=== PATIENT | female | born 1945 | race Caucasian/White ===

== ENCOUNTER → 2016-06-06 | Outpatient (CLI) | payer OTHER, BC ==
[~2016-06-06] MED LIST: ACET650T49 PO; AMLO-110 PO; AMLO-114 PO; AMOX500C3 PO; ASPEC81 PO; CIPR-255 PO; CLB200 PO; CLOB-65 EXT; CLON0.5T3 PO; CLR5 PO; CRAN500C2 PO; GEMF600T PO; IMD/2 PO; LISI40TA PO; LORA-388 PO; MECL1TAB40 PO; METO25TA3 PO; MULTTAB58 PO; PHEN-775 PO; TRAM-10 PO; TRMO2580 TOP; ZNTT/150 PO
[2016-06-06 13:08] LABS: URINE APPEARANCE CLEAR (CLEAR); URINE BILIRUBIN NEG (NEG); URINE COLOR YELLOW; URINE NITRITE NEG (NEG); URINE PH 5.5 (4.5-7.5); URINE SPECIFIC GRAVITY 1.023 (1.000-1.030); UROBILINOGEN NEG (NEG); ZZUR CULT IF INDIC CLEAN CATCH NO
[2016-06-06 13:10] LABS: MANUAL MICROSCOPIC REQUIRED? YES; REVIEW REQ? NO
[2016-06-06 13:34] LABS: ESTIMATED AVERAGE GLUCOSE 131 mg/dl; HA1C FLAG Normal (Normal)
[2016-06-06 13:39] LABS: URINE BACTERIA NEG (NEG); URINE RBC >30 /hpf (0-4)
[2016-06-06 13:42] LABS: ALT/SGPT 30 U/L (12-78); AST/SGOT 18 U/L (15-37); BLOOD UREA NITROGEN 26 mg/dl (7-18); BUN/CREATININE RATIO 32.5 (10-20); CALCIUM 9.5 mg/dl (8.5-10.1); CARBON DIOXIDE 30 mmol/L (21-32); CHLORIDE 106 mmol/L (98-107); CHOLESTEROL 299 mg/dl (0-200); CREATININE 0.79 mg/dl (0.60-1.20); GLUCOSE 111 mg/dl (70-99); POTASSIUM 3.9 mmol/L (3.5-5.1); SODIUM 142 mmol/L (136-145); TRIGLYCERIDES 193 mg/dl (0-150); VERY LOW DENSITY LIPOPROT CALC 39 mg/dl
[2016-06-06 14:00] LABS: ALKALINE PHOSPHATASE 98 U/L (45-117); CHOLESTEROL/HDL RATIO 5.2; HDL CHOLESTEROL 58 mg/dl; LDL CHOLESTEROL CALCULATED 202 mg/dl
--- NOTE | 2016-06-13 13:02 | CODING QUERY MEDICAL NECESSITY ---
SUPPORTING DIAGNOSIS NEEDED Dr. Maldonado, A supporting diagnosis is required for the test/procedure performed on this patient in order for us to be reimbursed by the patient's insurance. Please provide a supporting diagnosis for the following test/procedure listed below next to the test name along with your signature. *If there is no additional diagnosis for this patient that would support the following test/procedure please document that below next to the test/procedure. Test(s)/Procedure(s) that require a supporting diagnosis: * [id number] GLYCATED HEMOGLOBIN DIAGNOSIS: DATE OF SERVICE: 06/06/16 Provider Signature: Date: Thank you Barry Arellano [employer] Once completed, please kindly fax back to [phone] For questions please call [phone]
== END | disposition home or self-care (01) ==
LOC: C.LABBFT 07:57
PROVIDERS: ATTEND Internal Medicine
DX: R73.03 Prediabetes (principal); E78.5 Hyperlipidemia, unspecified; I10 Essential (primary) hypertension

== ENCOUNTER → 2016-07-24 | Outpatient (CLI) | payer OTHER, BC ==
--- NOTE | 2016-07-24 09:43 | DIAGNOSTIC IMAGING REPORT ---
DOPPLER ULTRASOUND OF THE RENAL ARTERIES CLINICAL HISTORY: Hypertension. COMPARISON STUDY: No priors. TECHNIQUE: Doppler sonography of the renal arteries was performed to assess renal artery stenosis. Images are reviewed in the transverse and longitudinal planes. FINDINGS: The kidneys appear normal in size and echotexture. The right kidney measures 9.7 cm in length and the left kidney measures 10.3 cm in length. There is no hydronephrosis. A subcentimeter cyst is noted in the right upper pole. A shadowing calculus is present in the left lower pole. On the right, intrarenal arterial resistive indices range from 0.72 to 0.78. Intrarenal arterial waveforms are normal with brisk upstrokes. The right renal arterial waveform is normal, and velocities within the right renal artery measure up to 121 cm/sec. The right renal vein is patent. On the left, intrarenal arterial resistive indices range from 0.66 to 0.69. Intrarenal arterial waveforms are normal with brisk upstrokes. The left renal arterial waveform is normal. There are mildly elevated velocities within the midportion of the left renal artery which measure up to 220 cm/sec. The left renal vein is patent. The abdominal aorta is patent. Velocities within the abdominal aorta measure up to 115 cm/s. IMPRESSION: 1. There is no sonographic evidence of right renal artery stenosis. 2. There are mildly elevated velocities within the midportion of the left renal artery measuring up to 220 cm/s. This suggests some degree of stenosis. 3. Left renal calculus. Electronically signed by: Ruy Dave M.D. 07/24/2016 9:42 AM Dictated Date/Time: 07/24/2016 9:33 AM
== END | disposition home or self-care (01) ==
LOC: C.ULTR 08:27
PROVIDERS: ATTEND Nurse Practitioner
DX: I10 Essential (primary) hypertension (principal)

== ENCOUNTER → 2016-07-28 | Outpatient (CLI) | payer OTHER, BC ==
[~2016-07-28] MED LIST changes: +OPTIRAY 320 IV PRN
--- NOTE | 2016-07-28 10:00 | DIAGNOSTIC IMAGING REPORT ---
CT ANGIOGRAM OF THE ABDOMEN COMBO CLINICAL HISTORY: Renal artery stenosis. Hypertension. COMPARISON STUDY: Renal artery ultrasound dated 07/24/2016. TECHNIQUE: Before and following the IV administration of 93 cc of Optiray 320, CT angiogram of the abdomen was performed from the lung bases the pelvic inlet. Images are reviewed in the axial, sagittal, and coronal planes. 3-D reformats and MIPS images are created and assessed. IV contrast was administered without complication. CT DOSE: 1044.22 mGy.cm FINDINGS: Lower chest: The heart is enlarged and without pericardial effusion. There are coronary artery calcifications. There are scattered calcified granulomas. The lung bases are otherwise clear noting dependent atelectasis. A tiny hiatal hernia is observed. Liver: The contrast-enhanced liver is enlarged, measuring 18.5 cm in length. The liver demonstrates diffusely diminished attenuation consistent with severe hepatic steatosis. There is no intrahepatic or ductal dilatation. The main portal veins appear patent. Gallbladder: Surgically absent noting clips in the gallbladder fossa. Spleen: Normal in size and attenuation noting heterogeneous arterial phase enhancement. Pancreas: Unremarkable. Adrenal glands: Unremarkable. Kidneys: There is a staghorn calculus in the left renal pelvis which measures up to 3.3 cm. No calculi are seen in the right kidney on the unenhanced series. The contrast enhanced kidneys demonstrate cortical atrophy and are without hydronephrosis. The kidneys enhance symmetrically. An 8 mm cyst is present in the right upper pole. Abdominal aorta and iliac arteries: There is advanced atherosclerotic calcification of the abdominal aorta and visualized iliac arteries. The abdominal aorta is normal in caliber.. The abdominal aorta and visualized iliac arteries are widely patent. No dissection is seen. Major branches of the abdominal aorta: The celiac trunk, superior mesenteric, and inferior mesenteric arteries are widely patent. There is a replaced right hepatic artery which arises from the superior mesenteric artery. The splenic artery is widely patent. The main right renal artery and a small accessory right renal artery are widely patent. There is mild (less than 50%) stenosis seen within the proximal left renal artery approximately 8 mm from the aortic takeoff secondary to soft plaque. The remainder of the left renal artery is widely patent. Bowel: Visualized portions of the small bowel and colon are normal in course and caliber. Peritoneum: There is no intraperitoneal free air or abdominal ascites. There is a small fat-containing umbilical hernia. Lymphadenopathy: None. Skeletal structures: The skeletal structures are heterogeneously osteopenic. There is moderate lumbosacral spondylosis. No destructive bony lesions are seen. IMPRESSION: 1. There is mild (less than 50%) focal stenosis within the proximal left renal artery secondary to soft plaque. 2. The left renal arteries otherwise widely patent. 3. The main right renal artery and an accessory right renal artery are widely patent. 4. Cardiomegaly. 5. Hepatomegaly and severe hepatic steatosis. 6. A staghorn calculus is identified in the left kidney. 7. Additional findings as above. Electronically signed by: Ruy Dave M.D. 07/28/2016 9:58 AM Dictated Date/Time: 07/28/2016 9:43 AM
== END | disposition home or self-care (01) ==
LOC: C.CTS 09:11
PROVIDERS: ATTEND Nurse Practitioner
DX: I70.1 Atherosclerosis of renal artery (principal)

== ENCOUNTER → 2016-09-08 | Outpatient (CLI) | payer OTHER ==
[~2016-09-08] MED LIST changes: -CLOB-65 EXT; -CLR5 PO; -OPTIRAY 320 IV PRN
[2016-09-08 16:04] LABS: URINE APPEARANCE CLEAR (CLEAR); URINE BILIRUBIN NEG (NEG); URINE COLOR YELLOW; URINE NITRITE NEG (NEG); URINE PROTIEN/CREAT RATIO 0.4 (0-0.2); URINE SPECIFIC GRAVITY 1.027 (1.000-1.030); URINE TOTAL PROTEIN 48.1 mg/dl (0-11.9); UROBILINOGEN NEG (NEG)
[2016-09-08 16:11] LABS: BLOOD UREA NITROGEN 33 mg/dl (7-18); BUN/CREATININE RATIO 35.9 (10-20); CALCIUM 9.9 mg/dl (8.5-10.1); CARBON DIOXIDE 29 mmol/L (21-32); CHLORIDE 108 mmol/L (98-107); CREATININE 0.91 mg/dl (0.60-1.20); GLUCOSE 97 mg/dl (70-99); PHOSPHORUS 3.4 mg/dl (2.5-4.9); POTASSIUM 3.4 mmol/L (3.5-5.1); SODIUM 144 mmol/L (136-145)
[2016-09-08 16:15] LABS: MANUAL MICROSCOPIC REQUIRED? NO; REVIEW REQ? NO
[2016-09-12 14:58] LABS: ALBUMIN 4.7 G/DL (3.8-4.8); ALBUMIN % 51.83 %; ALPHA-2-GLOBULIN % 14.64 %; BETA GLOBULIN % 16.55 %; CREATININE UR 133 MG/DL (20-320); FREE KAPPA 17.2 MG/L (3.3-19.4); FREE KAPPA/LAMBDA RATIO 1.74 (0.26-1.65); FREE LAMBDA 9.9 MG/L (5.7-26.3); GAMMA GLOBULIN 0.9 G/DL (0.8-1.7); GAMMA GLOBULIN % 14.27 %; TOTAL PROTEIN 7.8 G/DL (6.2-8.3)
== END | disposition home or self-care (01) ==
LOC: C.LAB1850 14:08
PROVIDERS: ATTEND Internal Medicine Nephrology
DX: E83.52 Hypercalcemia (principal); E55.9 Vitamin D deficiency, unspecified

== ENCOUNTER → 2016-09-11 | Day surgery (SDC) | payer OTHER, BC ==
[2016-08-30 09:52] VITALS: BMI 28.0
--- NOTE | 2016-08-30 10:22 | PAT Medication Instructions ---
Service Date Aug 30, 2016. Current Home Medication List Acetaminophen (Arthritis Pain Relief), 2 TABS PO BID Amlodipine (Norvasc), 5 MG PO BID Amoxicillin (Amoxil), 500 MG PO UD Aspirin Enteric Coated (Ecotrin Or Generic *), 81 MG PO QAM Celecoxib (Celebrex *), 200 MG PO QPM Clonazepam (Klonopin), 0.5 MG PO HS PRN for Sleep Cranberry (Vaccinium Macrocarp (Cranberry), 500 MG PO BID Gemfibrozil (Lopid), 600 MG PO BID Lisinopril (Zestril), 40 MG PO QAM Loperamide Hcl (Imodium), 2 MG PO DAILY PRN for Diarrhea Loratadine (Alavert), 1 MG PO DAILY PRN for ALLERGY Meclizine HCl (Meclizine HCl), 1 TAB PO TID PRN for MOTION SICKNESS Metoprolol Succ (Toprol Xl) (Toprol-Xl), 25 MG PO QAM Multiple Vitamin (Multivitamin), 1 TAB PO QAM Ranitidine (Zantac), 150 MG PO BID Triamcinolone Acetonide (Topic (Triamcinolone Acet 0.025%), 1 APPLN TOP BID Medication Instructions For Your Scheduled Surgery - Continue as directed: Amoxicillin (Amoxil), 500 MG PO UD - Check with surgeon for instructions: Aspirin Enteric Coated (Ecotrin Or Generic *), 81 MG PO QAM Celecoxib (Celebrex *), 200 MG PO QPM - Hold the following medications starting 08/30/16: Cranberry (Vaccinium Macrocarp (Cranberry), 500 MG PO BID - Hold the following medications 24 hours prior to surgery: Triamcinolone Acetonide (Topic (Triamcinolone Acet 0.025%), 1 APPLN TOP BID - Hold the following medications the morning of surgery: Multiple Vitamin (Multivitamin), 1 TAB PO QAM Ranitidine (Zantac), 150 MG PO BID Lisinopril (Zestril), 40 MG PO QAM Loperamide Hcl (Imodium), 2 MG PO DAILY PRN for Diarrhea Loratadine (Alavert), 1 MG PO DAILY PRN for ALLERGY - Take the following medications the morning of surgery with a sip of water: Metoprolol Succ (Toprol Xl) (Toprol-Xl), 25 MG PO QAM Meclizine HCl (Meclizine HCl), 1 TAB PO TID PRN for MOTION SICKNESS (if needed) Amlodipine (Norvasc), 5 MG PO BID Acetaminophen (Arthritis Pain Relief), 2 TABS PO BID - Take the following medications as scheduled the night before surgery: Ranitidine (Zantac), 150 MG PO BID Meclizine HCl (Meclizine HCl), 1 TAB PO TID PRN for MOTION SICKNESS (if needed) Loperamide Hcl (Imodium), 2 MG PO DAILY PRN for Diarrhea (if needed) Loratadine (Alavert), 1 MG PO DAILY PRN for ALLERGY (if needed) Clonazepam (Klonopin), 0.5 MG PO HS PRN for Sleep (if needed) Amlodipine (Norvasc), 5 MG PO BID Acetaminophen (Arthritis Pain Relief), 2 TABS PO BID If you have any questions please call us at [phone] or [phone] or [phone]
[2016-08-30 10:50] LABS: BASO % 0.8 %; BASO ABS # 0.05 K/uL (0-0.2); COMPLETE YES; EOS % 2.5 %; HEMATOCRIT 39.8 % (37-47); IG% 0.2 %; LYMPH % 36.4 %; LYMPH ABS # 2.35 K/uL (1.2-3.4); MEAN CORPUSCULAR HEMOGLOBIN 30.4 pg (25-34); MEAN CORPUSCULAR HGB CONC 34.2 g/dl (32-36); MEAN PLATELET VOLUME 9.3 fL (7.4-10.4); MONO % 8.7 %; NEUT % 51.4 %; PLATELET COUNT 417 K/uL (130-400); RED BLOOD COUNT 4.47 M/uL (4.2-5.4); WHITE BLOOD COUNT 6.46 K/uL (4.8-10.8)
[2016-08-30 11:02] LABS: URINE APPEARANCE CLEAR (CLEAR); URINE BILIRUBIN NEG (NEG); URINE COLOR YELLOW; URINE NITRITE NEG (NEG); URINE PH 5.5 (4.5-7.5); URINE SPECIFIC GRAVITY 1.022 (1.000-1.030); UROBILINOGEN NEG (NEG)
--- NOTE | 2016-08-30 11:02 | DIAGNOSTIC IMAGING REPORT ---
CHEST PREADMISSION(PA/LAT) CLINICAL HISTORY: Preoperative evaluation. COMPARISON STUDY: Chest radiograph August 09, 2011. FINDINGS: Lung volumes are normal. There is no pneumothorax or pleural effusion. There is no evidence of pulmonary edema. No consolidation is identified. Mild cardiomegaly is unchanged. There are cholecystectomy clips. IMPRESSION: 1. No acute cardiopulmonary findings. 2. Stable mild cardiomegaly. Electronically signed by: Brandan Vasquez M.D. 08/30/2016 11:00 AM Dictated Date/Time: 08/30/2016 10:59 AM
[2016-08-30 11:09] LABS: MANUAL MICROSCOPIC REQUIRED? NO; REVIEW REQ? NO
[2016-08-30 11:30] LABS: BUN/CREATININE RATIO 35.2 (10-20); CALCIUM 10.5 mg/dl (8.5-10.1); CREATININE 0.84 mg/dl (0.60-1.20); POTASSIUM 4.1 mmol/L (3.5-5.1)
[~2016-09-11] VITALS: Ht 154.9 cm; Wt 70.7 kg
[~2016-09-11] MED LIST changes: +ACETAMINOPHEN 325 MG TAB PO PRN; +ATROPINE SULFATE 0.1 MG/ML 5ML SYR IV PRN; +BELLADONNA/OPIUM SUPP 60 MG SUPP PR ONE; +CIPROFLOXACIN / D5W 400 MG IV SCH; +CONRAY 30% 150ML BOTTLE ONE; +DEXAMETHASONE SOD INJ 4 MG/ML VIAL ONE; +EpHEDrine SULFATE INJ 50 MG/ML AMP IV PRN; +EpHEDrine SULFATE INJ 50 MG/ML AMP ONE; +FENTANYL CITRATE INJ 50 MCG/1 ML 2 ML VIAL IV PRN; +FENTANYL CITRATE INJ 50 MCG/1 ML 2 ML VIAL ONE; +GLYCOPYRROLATE INJ 0.2 MG/ML VIAL ONE; +KETOROLAC TROMETHAMINE 15 MG/ML VIAL IV. STA; +LACTATED RINGER'S 1000ML 1,000 ML IV SCH; +LIDOCAINE HCL 2% 2 ML VIAL (20MG/ML) ONE; +METOCLOPRAMIDE HCL INJ 5 MG/ML 2 ML VIAL ONE; +MIDAZOLAM HCL 1 MG/ML 2ML VIAL ONE; +NEOSTIGMINE METHYLSULFATE 5 MG/5 ML SYR ONE; +ONDANSETRON INJ 2 MG/ML 2 ML VIAL IV PRN; +ONDANSETRON INJ 2 MG/ML 2 ML VIAL ONE; +OXYCODONE/ACETAMINOPHEN 5-325 TAB PO PRN; +PHENYLEPHRINE HCL INJ 10 MG/ML VIAL ONE; +PROPOFOL IV EMULSION 10 MG/ML 20 ML VIAL IV ONE; +RANITIDINE HCL 25 MG/ML INJ ONE; +ROCURONIUM BROMIDE 10 MG/ML 5 ML VIAL ONE; +SCOPOLAMINE 1.5 MG TDSY TD ONE; +SODIUM CHLORIDE 0.9% 1000ML 1,000 ML IV SCH; +SUCCINYLCHOLINE CHLORIDE 20 MG/ML 10 ML VIAL IV ONE; +TAMSULOSIN HCL 0.4 MG CAP PO SCH
[2016-09-11 07:31] VITALS: BP 142/74; PULSE 70; TEMP 36.8; O2SAT 96; Ht 154.9 cm; Wt 70.7 kg
--- NOTE | 2016-09-11 08:30 | History & Physical Bridge Note ---
H&P Re-Evaluation Bridge Note: I have examined the patient, reviewed the History & Physical and in the interval since the performance of the History & Physical I have noted the following changes of clinical significance: No changes noted
--- NOTE | 2016-09-11 10:33 | [facility] Post Operative Brief Note ---
Immediate Operative Summary Operative Date Sep 11, 2016. Pre-Operative Diagnosis Nephrolithiasis Post-Operative Diagnosis Nephrolithiasis Procedure(s) Performed cystoscopy; left ureteroscopy; laser lithotripsy; stent Surgeon Dr. Wright Principal Solutions Architect Surgeon(s) none Estimated Blood Loss 5cc Findings Partial staghorn calculus filling the left lower pole. 2 smaller stones behind the larger stone. Vast majority of the stone fragmented during today's procedure. Specimens none per surgeon Drains 6Fx 24cm stent Anesthesia gen Complication(s) None Disposition Recovery Room / PACU (stable)
--- NOTE | 2016-09-11 10:40 | Discharge Instructions ---
Discharge Instructions Date of Service Sep 11, 2016. Admission Reason for Admission: STONE Discharge Discharge Diagnosis / Problem: stone Discharge Goals Goal(s): Decrease discomfort, Improve function, Increase independence, Improve disease control, Prevent Disease Progression Activity Recommendations Activity Limitations: resume your previous activity Lifting Limitations: none Exercise/Sports Limitations: none May Resume Sexual Activity: when tolerated Shower/Bathe: no limitations Driving or Machine Use: resume 1 day after discharge . Instructions / Follow-Up Instructions / Follow-Up We were able to successfully treat the vast majority of the stone in the kidney , however, Dr. Wright feels there will still likely be one additional, short procedure to clean up the last of the debris. His office will call you to make arrangements for this. Discharge Diet Recommended Diet: Regular Diet Procedures Procedures Performed: cystoscopy; left ureteroscopy; laser lithotripsy; stent Pending Studies Studies pending at discharge: no Medical Emergencies . Who to Call and When: Medical Emergencies: If at any time you feel your situation is an emergency, please call 911 immediately. . Non-Emergent Contact Non-Emergency issues call your: Urologist Call Non-Emergent contact if: you have a fever, temperature is above 101.5, your pain is not controlled, your pain is worsening . . "Provider Documentation" section prepared by Evan Richardson. . VTE Core Measure Inpt VTE Proph given/why not?: Treatment not indicated [place] Drug Monitoring Program Search Results: patient reviewed within database, no issues identified
--- NOTE | 2016-09-11 10:46 | DIAGNOSTIC IMAGING REPORT ---
RETROGRADE INCLUDES KUB CLINICAL HISTORY: 71 years-old Female presenting with LT LASER/STENT. TECHNIQUE: 3 fluoroscopic spot images of the left collecting system were obtained as part of an intraoperative procedure. COMPARISON: CT from 07/28/2016. FINDINGS/IMPRESSION: A wire was passed into the left ureter and left renal collecting system. The large left staghorn calculus is not well depicted on these images. At the conclusion of the procedure, the upper portion of a presumed double-J stent is noted within the renal pelvis. Please see separately dictated surgical procedure for further details. Electronically signed by: Cristofer Fournier 09/11/2016 10:45 AM Dictated Date/Time: 09/11/2016 10:42 AM
--- NOTE | 2016-09-11 11:14 | [facility] Operative Report ---
Operative Report Operative Date Sep 11, 2016. Pre-Operative Diagnosis Nephrolithiasis Post-Operative Diagnosis Nephrolithiasis Procedure(s) Performed cystoscopy; left ureteroscopy; laser lithotripsy; stent Surgeon Dr. Wright Vice President Integrated Surgeon(s) none Estimated Blood Loss 5cc Findings Very large left renal stone; smaller stones adjacent to it within the lower pole. Specimens A. Left Ureteral Calculi--for chemical analysis Drains 6Fx 24cm stent Anesthesia gen Complication(s) None Disposition Recovery Room / PACU (stable) Indications Staghorn calculus Description of Procedure Elena Canchola was identified in the preoperative holding area appropriate informed consent reviewed and completed and the patient was transported to the operative suite. Upon arrival she received appropriate preoperative antibiotics of ciprofloxacin, general anesthesia was achieved she was placed in dorsal lithotomy position where she was sterilely prepped and draped in standard fashion. Beginning the case by passing a 22 Zambian cystoscope with 30 lens. There were no bladder abnormalities appreciated. Ureteral orifices were in orthotopic position. Following my inspection of the bladder I cannulated the left ureteral orifice with a 10 Zambian double-lumen catheter and sensor wire. The wire advanced the kidney without difficulty. Of note on fluoroscopic evaluation there was a very large appearing calculus within the lower pole of the kidney. A second wire was advanced to the second part of the 10 Zambian double-lumen catheter. I then withdrew the scope and a 10 [place]ambian double-lumen catheter. A ureteral access sheath was advanced over one wire over serving others a safety wire. I then passed a flexible ureteroscope via the access sheath. Immediately upon entering the kidney and A Large Yellow Appearing Calculus Protruding from the Left Lower Pole. 400 micron laser fiber was then used to fragment the stone. Given the location of the stone there were some limits to my treatment with 400 fiber. A subsequent was switched to 270 fiber and continue laser lithotripsy. I was able to get underneath the lower portion of the stone and fragment it entirely. Behind the main stone encountered 2 smaller stones within the lower pole. I fragment in the stones as well. Of note given the size of the stones there was a huge amount of debris building up within the lower pole of the kidney and visualization was somewhat limited towards end of the case. I attempted to treat all large calculi prior to exiting the kidney. I performed a careful exitureteroscopy will simultaneously withdrawing the axis sheath. There is no evidence of trauma to the ureter and there were no large fragments within the ureter. I concluded the case by placing a 6 Zambian by 24 cm double-J ureteral stent observing a good curl in the kidney as well as the bladder. Subsequent landed the bladder concluded the case. I did collect stone debris and passed off the table as a specimen. The patient was extubated and taken to PACU in stable condition. This concludes this operative report dictating physician Manjeet Wright. I attest to the content of the Intraoperative Record and any orders documented therein. Any exceptions are noted below.
[2016-09-11 11:45] VITALS: BP 139/70; PULSE 57; PULSE 62; TEMP 36; O2SAT 95
[2016-09-11 12:00] VITALS: BP 128/57; PULSE 59; O2SAT 95
[2016-09-11 12:30] VITALS: BP 138/59; PULSE 60; O2SAT 97
[2016-09-11 13:05] VITALS: BP 125/60; PULSE 54; TEMP 36.5; O2SAT 97
--- NOTE | 2016-09-11 14:11 | Anesthesiology Progress Note ---
Anesthesia Post Op Note Date & Time Sep 11, 2016 at 14:10 Vital Signs Pain Intensity: 5.0 Vital Signs Past 12 Hours Date Time Temp Pulse Resp B/P (MAP) Pulse Ox O2 Delivery O2 Flow Rate FiO2 09/11/16 13:05 36.5 54 16 125/60 97 Room Air 09/11/16 12:30 60 18 138/59 97 Room Air 09/11/16 12:00 59 18 128/57 95 Room Air 09/11/16 11:45 62 18 139/70 95 Room Air 10 09/11/16 11:30 57 12 139/70 95 Room Air 09/11/16 11:20 36.0 66 16 138/73 94 Room Air 09/11/16 11:10 65 16 131/70 97 Room Air 09/11/16 11:00 70 17 146/75 96 Mask 09/11/16 10:50 71 19 147/79 97 Mask 09/11/16 10:44 36.2 76 20 161/82 96 Mask 09/11/16 07:31 36.8 70 18 142/74 (96) 96 Room Air Notes Mental Status: alert / awake / arousable, participated in evaluation Pt Amnestic to Procedure: Yes Nausea / Vomiting: adequately controlled Pain: adequately controlled Airway Patency, RR, SpO2: stable & adequate BP & HR: stable & adequate Hydration State: stable & adequate Anesthetic Complications: no major complications apparent
== END | disposition home or self-care (01) ==
LOC: C.ACU 06:51
PROVIDERS: ATTEND Urology
DX: N20.0 Calculus of kidney (principal); I35.1 Nonrheumatic aortic (valve) insufficiency; I10 Essential (primary) hypertension; F32.9 Major depressive disorder, single episode, unspecified; K21.9 Gastro-esophageal reflux disease without esophagitis; E78.5 Hyperlipidemia, unspecified; E66.9 Obesity, unspecified; Z83.3 Family history of diabetes mellitus; Z80.49 Family history of malignant neoplasm of other genital organs; Z82.49 Family history of ischemic heart disease and other diseases of the circulatory system; Z82.5 Family history of asthma and other chronic lower respiratory diseases; Z84.1 Family history of disorders of kidney and ureter; Z80.8 Family history of malignant neoplasm of other organs or systems; Z79.82 Long term (current) use of aspirin; Z79.899 Other long term (current) drug therapy

== ENCOUNTER 2016-09-26 10:34 | Day surgery (SDC) | payer OTHER ==
[2016-08-30 10:09] VITALS: BMI 28.0
[~2016-09-26] VITALS: Ht 154.9 cm; Wt 68.1 kg
[~2016-09-26 10:34] MED LIST changes: -ACETAMINOPHEN 325 MG TAB PO PRN; -AMLO-110 PO; -ATROPINE SULFATE 0.1 MG/ML 5ML SYR IV PRN; -BELLADONNA/OPIUM SUPP 60 MG SUPP PR ONE; -CONRAY 30% 150ML BOTTLE ONE; -DEXAMETHASONE SOD INJ 4 MG/ML VIAL ONE; -EpHEDrine SULFATE INJ 50 MG/ML AMP IV PRN; -EpHEDrine SULFATE INJ 50 MG/ML AMP ONE; -FENTANYL CITRATE INJ 50 MCG/1 ML 2 ML VIAL IV PRN; -FENTANYL CITRATE INJ 50 MCG/1 ML 2 ML VIAL ONE; -GLYCOPYRROLATE INJ 0.2 MG/ML VIAL ONE; -KETOROLAC TROMETHAMINE 15 MG/ML VIAL IV. STA; -LIDOCAINE HCL 2% 2 ML VIAL (20MG/ML) ONE; -METOCLOPRAMIDE HCL INJ 5 MG/ML 2 ML VIAL ONE; -MIDAZOLAM HCL 1 MG/ML 2ML VIAL ONE; -NEOSTIGMINE METHYLSULFATE 5 MG/5 ML SYR ONE; -ONDANSETRON INJ 2 MG/ML 2 ML VIAL IV PRN; -ONDANSETRON INJ 2 MG/ML 2 ML VIAL ONE; -OXYCODONE/ACETAMINOPHEN 5-325 TAB PO PRN; -PHEN-775 PO; -PHENYLEPHRINE HCL INJ 10 MG/ML VIAL ONE; -PROPOFOL IV EMULSION 10 MG/ML 20 ML VIAL IV ONE; -RANITIDINE HCL 25 MG/ML INJ ONE; -ROCURONIUM BROMIDE 10 MG/ML 5 ML VIAL ONE; -SCOPOLAMINE 1.5 MG TDSY TD ONE; -SODIUM CHLORIDE 0.9% 1000ML 1,000 ML IV SCH; -SUCCINYLCHOLINE CHLORIDE 20 MG/ML 10 ML VIAL IV ONE; -TAMSULOSIN HCL 0.4 MG CAP PO SCH
[2016-09-26 10:58] VITALS: BP 141/57; PULSE 61; TEMP 36.9; O2SAT 97; Ht 154.9 cm; Wt 68.1 kg
[2016-09-26] MEDS ORDERED: DEXAMETHASONE SOD INJ 4 MG/ML VIAL ONE (11:41)
[2016-09-26] MEDS ORDERED: LIDOCAINE HCL 2% 2 ML VIAL (20MG/ML) ONE (11:41)
[2016-09-26] MEDS ORDERED: MIDAZOLAM HCL 1 MG/ML 2ML VIAL ONE (11:41)
[2016-09-26] MEDS ORDERED: PROPOFOL IV EMULSION 10 MG/ML 20 ML VIAL IV ONE (11:41)
[2016-09-26] MEDS ORDERED: FENTANYL CITRATE INJ 50 MCG/1 ML 2 ML VIAL ONE (11:41)
[2016-09-26] MEDS ORDERED: ONDANSETRON INJ 2 MG/ML 2 ML VIAL ONE (11:41)
[2016-09-26] MEDS ORDERED: SCOPOLAMINE 1.5 MG TDSY TD ONE (12:11)
--- NOTE | 2016-09-26 12:27 | History and Physical ---
History & Physical Date Sep 26, 2016. Chief Complaint Nephrolithiasis History of Present Illness The patient is a 71 year old female with complaints of left renal calculus status post prior laser lithotripsy, now returning for a second look to ensure no large retained fragments Past Medical/Surgical History Ureteroscopy with laser lithotripsy Additional History Hepatic Disease: No Endocrine Disorder: No Kidney Disease: No Hypertension: No Heart Disease: No Bleeding Tendencies: No Infectious Diseases: No Allergies Coded Allergies: Sulfamethoxazole w/Trimethoprim (Verified Allergy, Mild, RASH, 09/26/16) Fenofibrate (Unverified Allergy, Unknown, UNKNOWN REACTION, 09/26/16) PER RECORDS Atorvastatin (Verified Adverse Reaction, Unknown, ELEVATED CPK, 09/26/16) Codeine (Verified Adverse Reaction, Unknown, CONSTIPATION & NAUSEA, ) Diphenhydramine (Verified Adverse Reaction, Unknown, HYPERACTIVE, 09/26/16) Lovastatin (Verified Adverse Reaction, Unknown, MUSCLE ACHES, 09/26/16) Niacin (Verified Adverse Reaction, Unknown, NAUSEA, 09/26/16) Rosuvastatin (Verified Adverse Reaction, Unknown, ELEVATED CPK, 09/26/16) Simvastatin (Verified Adverse Reaction, Unknown, ELEVATED CPK, 09/26/16) Home Medications Scheduled Acetaminophen (Arthritis Pain Relief), 2 TABS PO BID Amlodipine (Norvasc), 10 MG PO HS Amoxicillin (Amoxil), 500 MG PO UD Aspirin Enteric Coated (Ecotrin Or Generic *), 81 MG PO QAM Celecoxib (Celebrex *), 200 MG PO QPM Cranberry (Vaccinium Macrocarp (Cranberry), 500 MG PO BID Gemfibrozil (Lopid), 600 MG PO BID Lisinopril (Zestril), 40 MG PO QAM Metoprolol Succ (Toprol Xl) (Toprol-Xl), 25 MG PO QAM Multiple Vitamin (Multivitamin), 1 TAB PO QAM Ranitidine (Zantac), 150 MG PO BID Triamcinolone Acetonide (Topic (Triamcinolone Acet 0.025%), 1 APPLN TOP BID Scheduled PRN Clonazepam (Klonopin), 0.5 MG PO HS PRN for Sleep Loperamide Hcl (Imodium), 2 MG PO DAILY PRN for Diarrhea Loratadine (Alavert), 10 MG PO DAILY PRN for ALLERGY Meclizine HCl (Meclizine HCl), 1 TAB PO TID PRN for MOTION SICKNESS Physical Examination Skin: warm/dry Eyes: normal inspection ENT: normal ENT inspection Head: normocephalic Neck: supple Respiratory/Chest: lungs clear Cardiovascular: regular rate, rhythm, no edema, no murmur Abdomen / GI: normal bowel sounds, non tender Back: normal inspection Extremities: normal inspection, normal range of motion Neurologic/Psych: no motor/sensory deficits, alert, normal reflexes, oriented x 3 Diagnosis Nephrolithiasis Plan of Treatment Cystoscopy left ureteroscopy laser lithotripsy and stent exchange
[2016-09-26] MEDS ORDERED: KETOROLAC TROMETHAMINE 30 MG/ML VIAL ONE (12:59)
[2016-09-26] MEDS ORDERED: FENTANYL CITRATE INJ 50 MCG/1 ML 2 ML VIAL IV PRN (13:00)
[2016-09-26] MEDS ORDERED: EpHEDrine SULFATE INJ 50 MG/ML AMP IV PRN (13:00)
[2016-09-26] MEDS ORDERED: ATROPINE SULFATE 0.1 MG/ML 5ML SYR IV PRN (13:00)
[2016-09-26] MEDS ORDERED: ONDANSETRON INJ 2 MG/ML 2 ML VIAL IV PRN (13:00)
[2016-09-26] MEDS: CONRAY 30% 150ML BOTTLE ONE ×2 (13:16→13:24)
[2016-09-26] MEDS ORDERED: CIPR-255 PO (13:31)
[2016-09-26] MEDS ORDERED: KETOROLAC TROMETHAMINE 30 MG/ML VIAL IV. STA (13:33)
[2016-09-26] MEDS ORDERED: SODIUM CHLORIDE 0.9% 1000ML 1,000 ML IV SCH (13:33)
--- NOTE | 2016-09-26 13:33 | Discharge Instructions ---
Discharge Instructions Date of Service Sep 26, 2016. Admission Reason for Admission: Stones Discharge Discharge Diagnosis / Problem: stones Discharge Goals Goal(s): Decrease discomfort, Improve function, Increase independence, Improve disease control, Prevent Disease Progression Activity Recommendations Activity Limitations: resume your previous activity Lifting Limitations: none Exercise/Sports Limitations: none May Resume Sexual Activity: when tolerated Shower/Bathe: no limitations Driving or Machine Use: resume 1 day after discharge . Instructions / Follow-Up Instructions / Follow-Up Please come to Dr. Wright's office on Sunday at 9:40 AM to have your stent removed Discharge Diet Recommended Diet: Regular Diet Procedures Procedures Performed: Repeat Cystoscopy, Left Ureteroscopy, Laser Lithotripsy; Stent Exchange Pending Studies Studies pending at discharge: no Medical Emergencies . Who to Call and When: Medical Emergencies: If at any time you feel your situation is an emergency, please call 911 immediately. . Non-Emergent Contact Non-Emergency issues call your: Urologist Call Non-Emergent contact if: you have a fever, temperature is above 101.5, your pain is not controlled, your pain is worsening . . "Provider Documentation" section prepared by Evan Richardson. . VTE Core Measure Inpt VTE Proph given/why not?: Treatment not indicated
--- NOTE | 2016-09-26 13:38 | [facility] Operative Report ---
Operative Report Operative Date Sep 26, 2016. Pre-Operative Diagnosis Nephrolithiasis Post-Operative Diagnosis Nephrolithiasis Procedure(s) Performed Repeat Cystoscopy, Left Ureteroscopy, Laser Lithotripsy; Stent Exchange Surgeon Adriana Hydrogen Power Plant Manager Surgeon(s) none Estimated Blood Loss 3CC Findings Only small fragments remaining in the left kidney Specimens None per surgeon Drains 6 Tristanian by 24 cm double-J ureteral stent Anesthesia Gen. Complication(s) None Disposition Recovery Room / PACU (stable) Indications Staghorn calculus status post lithotripsy 1 Description of Procedure Elena Canchola was identified in the preoperative holding area, appropriate informed consent was reviewed and completed and the patient was transported to the operating suite. Upon arrival she received appropriate preoperative antibiotics in the form of ciprofloxacin, she then received general anesthesia and was placed in dorsal lithotomy position where she was sterilely prepped and draped in standard fashion. I begin the case by passing a 22 Tristanian cystoscope with 30 lens. Full inspection of the bladder was carried out without identification of any significant pathology. A left ureteral stent was easily seen protruding from the left orifice. The distal aspect of this was grasped withdrawn under fluoroscopy. Of note fluoroscopic evaluation of the kidney failed to reveal any large calculi. I intubated the stent with a sensor wire prior to complete removal and guided this wire into the kidney. And then utilized the 10 Tristanian double-lumen catheter over this wire to place a second wire into the kidney. I advanced a ureteral access sheath to the UPJ. I then placed a flexible ureteroscope via the ureteral access sheath and performed a full renoscopy. She has done quite well from the time of her last surgery, and has only as series of small stones remaining in the kidney. I passed a 200 laser fiber and I fragment in the stones in the pieces all teams safe for spontaneous passage. I attempted to irrigate his many of the stone fragments out of the kidney and down a ureteral access sheath is possible. Before concluding the case I performed a repeat renoscopy followed by a very careful exit ureteroscopy while simultaneously withdrawing the ureteral access sheath. There is no evidence of ureteral trauma or other abnormalities. I used an existing safety wire to place a 6 Tristanian 24 cm stent, leaving a dangler string attached to it. I emptied her bladder and concluded the case. She was extubated and taken to the PACU in stable condition. I attest to the content of the Intraoperative Record and any orders documented therein. Any exceptions are noted below.
--- NOTE | 2016-09-26 13:41 | DIAGNOSTIC IMAGING REPORT ---
KUB HISTORY: 71 years-old Female left ureteral stent placement. COMPARISON: Retrograde cystourethrogram 09/11/2016 TECHNIQUE: 2 spot fluoroscopic images of the left upper abdomen were obtained utilizing 19.6 seconds of fluoroscopy time. FINDINGS: First image demonstrates placement of a stent over a guidewire in the left ureter and proximal left collecting system. Second image demonstrates removal of the guidewire with left-sided ureteral stent in satisfactory position with proximal portion in the region of the renal pelvis. The distal portion of the ureteral stent is not imaged. No calculi are seen along the course of the ureteral stent. IMPRESSION: Status post placement of a left ureteral stent without definite calculus identified. See procedural report for further details. The above report was generated using voice recognition software. It may contain grammatical, syntax or spelling errors. Electronically signed by: Gee Garcia M.D. 09/26/2016 1:39 PM Dictated Date/Time: 09/26/2016 1:36 PM
[2016-09-26] MEDS ORDERED: ACETAMINOPHEN 325 MG TAB PO PRN (13:45)
--- NOTE | 2016-09-26 14:10 | Anesthesiology Progress Note ---
Anesthesia Post Op Note Date & Time Sep 26, 2016 at 14:10 Vital Signs Pain Intensity: 0 Vital Signs Past 12 Hours Date Time Temp Pulse Resp B/P (MAP) Pulse Ox O2 Delivery O2 Flow Rate FiO2 09/26/16 14:00 85 16 140/73 93 Room Air 09/26/16 13:50 86 16 148/70 96 Oxymask 10 09/26/16 13:40 80 16 139/65 95 Oxymask 10 09/26/16 13:33 36.6 80 13 139/67 96 Oxymask 10 09/26/16 10:58 36.9 61 18 141/57 (85) 97 Room Air Notes Mental Status: alert / awake / arousable, participated in evaluation Pt Amnestic to Procedure: Yes Nausea / Vomiting: adequately controlled Pain: adequately controlled Airway Patency, RR, SpO2: stable & adequate BP & HR: stable & adequate Hydration State: stable & adequate Anesthetic Complications: no major complications apparent
[2016-09-26 14:22] VITALS: BP 145/72; PULSE 81; TEMP 36.7; O2SAT 98
[2016-09-26 14:52] VITALS: BP 137/61; PULSE 80; TEMP 36.7; O2SAT 99
[2016-09-26 15:22] VITALS: BP 152/72; PULSE 76; TEMP 36.6; O2SAT 97
== END 2016-09-26 15:22 | disposition home or self-care (01) ==
LOC: C.ACU 10:34
PROVIDERS: ATTEND Urology
DX: N20.0 Calculus of kidney (principal); Z79.82 Long term (current) use of aspirin; Z79.899 Other long term (current) drug therapy

== ENCOUNTER → 2016-10-06 | Outpatient (CLI) | payer OTHER ==
[~2016-10-06] MED LIST changes: -CIPROFLOXACIN / D5W 400 MG IV SCH; -LACTATED RINGER'S 1000ML 1,000 ML IV SCH; -TRAM-10 PO
--- NOTE | 2016-10-06 10:45 | DIAGNOSTIC IMAGING REPORT ---
KUB CLINICAL HISTORY: 71 years-old Female presenting with NEPHROLITHIASIS. TECHNIQUE: Single supine view of the abdomen was obtained. COMPARISON: 09/26/2016, 09/11/2016, and 07/28/2016.. FINDINGS: Multiple superficial sutures noted along the right abdomen. Cholecystectomy clips partially visualized. Moderate stool burden throughout the colon, which mildly limits evaluation of the kidneys. Previously noted staghorn calculus on CT from July 28, 2016 within the left renal pelvis is not apparent. Additionally, the left ureteral stent from 09/26/2016 is also no longer in place. Nonobstructive bowel gas pattern. 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 Mild degenerative changes of the lumbar spine. IMPRESSION: 1. No radiographic evidence of nephrolithiasis. Electronically signed by: Cristofer Fournier M.D. 10/06/2016 10:44 AM Dictated Date/Time: 10/06/2016 10:41 AM
== END | disposition home or self-care (01) ==
LOC: C.RAD 09:58
PROVIDERS: ATTEND Urology
DX: N20.0 Calculus of kidney (principal)

== ENCOUNTER → 2016-10-19 | Outpatient (CLI) | payer OTHER | END | disposition home or self-care (01) | LOC: C.LAB 16:56 | PROVIDERS: ATTEND Nurse Practitioner Family | DX: R31.9 Hematuria, unspecified (principal) ==

== ENCOUNTER → 2016-11-10 | Outpatient (CLI) | payer OTHER ==
--- NOTE | 2016-11-13 15:52 | MAMMOGRAPHY REPORT ---
BILATERAL DIGITAL SCREENING MAMMOGRAM WITH CAD: 11/10/2016 CLINICAL HISTORY: Routine screening. Patient has no complaints. TECHNIQUE: Current study was also evaluated with a Computer Aided Detection (CAD) system. Bilateral CC and MLO views were obtained. COMPARISON: Comparison is made to exams dated: 11/09/2015 mammogram, 11/05/2014 mammogram, 11/26/2013 yuriy mogram, 11/17/2013 mammogram, 11/04/2013 mammogram, and 10/30/2012 mammogram - [facility] er. BREAST COMPOSITION: There are scattered areas of fibroglandular density in both breasts. FINDINGS: No suspicious masses, calcifications, or areas of architectural distortion are noted in ei ther breast. There has been no significant interval change compared to prior exams. Bilateral asymme tries are stable, including a nodular asymmetry in the right superior breast on the MLO view which is stable dating back to at least the 2008 and 2007 exams. Scattered bilateral benign-appearing calcif ications are again noted. A biopsy marker clip is again noted in the right lower inner quadrant. IMPRESSION: ACR BI-RADS CATEGORY 2: BENIGN There is no mammographic evidence of malignancy. A 1 year screening mammogram is recommended. The pa tient will receive written notification of the results. Approximately 10% of breast cancers are not detected with mammography. A negative mammographic report should not delay biopsy if a clinically suggestive mass is present. Marilyn Mckinney M.D. /:11/10/2016 16:17:43 Access Services Assistant: Ana KNIGHT)(Chris), [facility] letter sent: Normal 1/2 BI-RADS Code: ACR BI-RADS Category 2: Benign
== END | disposition home or self-care (01) ==
LOC: C.MAMM 09:57
PROVIDERS: ATTEND Obstetrics & Gynecology
DX: Z12.31 Encounter for screening mammogram for malignant neoplasm of breast (principal)

== ENCOUNTER → 2016-12-19 | Outpatient (CLI) | payer OTHER ==
[2016-12-19 12:28] LABS: BASO % 1.1 %; BASO ABS # 0.08 K/uL (0-0.2); COMPLETE YES; EOS % 4.8 %; HEMATOCRIT 40.2 % (37-47); IG% 0.3 %; LYMPH % 32.3 %; MEAN CELL VOLUME 91.4 fL (80-100); MEAN CORPUSCULAR HEMOGLOBIN 30.9 pg (25-34); MEAN CORPUSCULAR HGB CONC 33.8 g/dl (32-36); MONO % 9.4 %; NEUT % 52.1 %; PLATELET COUNT 365 K/uL (130-400); WHITE BLOOD COUNT 7.12 K/uL (4.8-10.8)
[2016-12-19 12:34] LABS: URINE APPEARANCE CLEAR (CLEAR); URINE BILIRUBIN NEG (NEG); URINE COLOR YELLOW; URINE NITRITE NEG (NEG); URINE SPECIFIC GRAVITY 1.025 (1.000-1.030); UROBILINOGEN NEG (NEG)
[2016-12-19 12:38] LABS: MANUAL MICROSCOPIC REQUIRED? NO; REVIEW REQ? NO
[2016-12-19 12:39] LABS: ALT/SGPT 36 U/L (12-78); BLOOD UREA NITROGEN 23 mg/dl (7-18); BUN/CREATININE RATIO 28.4 (10-20); CALCIUM 9.4 mg/dl (8.5-10.1); CARBON DIOXIDE 28 mmol/L (21-32); CHLORIDE 104 mmol/L (98-107); CHOLESTEROL 337 mg/dl (0-200); GLUCOSE 121 mg/dl (70-99); POTASSIUM 4.2 mmol/L (3.5-5.1); SODIUM 138 mmol/L (136-145)
[2016-12-19 12:51] LABS: ALKALINE PHOSPHATASE 84 U/L (45-117); AST/SGOT 23 U/L (15-37); CHOLESTEROL/HDL RATIO 6.7; HDL CHOLESTEROL 50 mg/dl; LDL CHOLESTEROL CALCULATED 220 mg/dl; PHOSPHORUS 3.1 mg/dl (2.5-4.9); TRIGLYCERIDES 337 mg/dl (0-150); VERY LOW DENSITY LIPOPROT CALC 67 mg/dl
[2016-12-19 13:02] LABS: URINE PROTIEN/CREAT RATIO 0.3 (0-0.2); URINE TOTAL PROTEIN 32.5 mg/dl (0-11.9)
[2016-12-19 13:22] LABS: ESTIMATED AVERAGE GLUCOSE 120 mg/dl; HA1C FLAG Normal (Normal)
== END | disposition home or self-care (01) ==
LOC: C.LABBFT 07:27
PROVIDERS: ATTEND Nurse Practitioner
DX: N20.0 Calculus of kidney (principal); R73.03 Prediabetes; E78.5 Hyperlipidemia, unspecified

== ENCOUNTER → 2017-02-28 | Outpatient (CLI) | payer OTHER ==
[~2017-02-28] MED LIST changes: -AMLO-114 PO; +AMLO10TA3 PO; -CLON0.5T3 PO; +KLN/5 PO; +RANI150T85 PO; -ZNTT/150 PO
[2017-02-28 12:52] LABS: BLOOD UREA NITROGEN 19 mg/dl (7-18); CREATININE 0.93 mg/dl (0.60-1.20)
== END | disposition home or self-care (01) ==
LOC: C.LABBFT 10:45
PROVIDERS: ATTEND Physician Assistant
DX: H90.42 Sensorineural hearing loss, unilateral, left ear, with unrestricted hearing on the contralateral side (principal)

== ENCOUNTER → 2017-03-01 | Outpatient (CLI) | payer OTHER ==
[~2017-03-01] MED LIST changes: +AMLO-114 PO; -AMLO10TA3 PO; +CLON0.5T3 PO; +GADAVIST IV PRN; -KLN/5 PO; -RANI150T85 PO; +ZNTT/150 PO
--- NOTE | 2017-03-01 15:58 | DIAGNOSTIC IMAGING REPORT ---
BRAIN COMBO FOR IAC CLINICAL HISTORY: H90.42 Left asymmetrical SNHLPatient has left greater than right hearing loss. Tinnitus. TECHNIQUE: Multi axial MRI acquisition pre and post gadolinium enhancement COMPARISON STUDY: None FINDINGS: Diffusion-weighted images are negative for an acute ischemic insult. Multiple foci of increased signal within the periventricular and deep white matter regions. This consistent with chronic small vessel change. Postcontrast images are considered negative for abnormal postcontrast enhancement. The structures the sella and parasellar region are unremarkable. Internal auditory canals are symmetric. There is no evidence for an abnormal enhancing lesion. IMPRESSION: 1. No evidence for an acute ischemic process. 2. Moderate to rather significant chronic small vessel change throughout both cerebral hemispheres. 3. Normal internal auditory canals The above report was generated using voice recognition software. It may contain grammatical, syntax or spelling errors. Electronically signed by: Trever Billy M.D. 03/01/2017 3:56 PM Dictated Date/Time: 03/01/2017 3:54 PM
== END | disposition home or self-care (01) ==
LOC: C.MRI 14:44
PROVIDERS: ATTEND Physician Assistant
DX: H90.42 Sensorineural hearing loss, unilateral, left ear, with unrestricted hearing on the contralateral side (principal)

== ENCOUNTER → 2017-07-03 | Outpatient (CLI) | payer OTHER ==
[~2017-07-03] MED LIST changes: -GADAVIST IV PRN; +RANI150T85 PO; -ZNTT/150 PO
[2017-07-03 16:51] LABS: ALBUMIN 4.1 gm/dl (3.4-5.0); ALT/SGPT 39 U/L (12-78); AST/SGOT 28 U/L (15-37); BLOOD UREA NITROGEN 34 mg/dl (7-18); CARBON DIOXIDE 27 mmol/L (21-32); CREATININE 1.01 mg/dl (0.60-1.20); GLUCOSE 103 mg/dl (70-99); POTASSIUM 4.4 mmol/L (3.5-5.1); SODIUM 138 mmol/L (136-145)
[2017-07-03 16:53] LABS: ALKALINE PHOSPHATASE 90 U/L (45-117); TOTAL PROTEIN 8.5 gm/dl (6.4-8.2)
[2017-07-04 06:10] LABS: HEMOGLOBIN A1C 6.1 % (4.5-5.6)
== END | disposition home or self-care (01) ==
LOC: C.LABBFT 11:50
PROVIDERS: ATTEND Internal Medicine
DX: I10 Essential (primary) hypertension (principal); R73.03 Prediabetes

== ENCOUNTER 2019-03-10 09:58 | Observation (INO) ==
[2019-03-10] MEDS ORDERED: SODIUM CHLORIDE 0.9% 500 ML IV ONE (10:12)
--- NOTE | 2019-03-10 10:32 | XRay Report ---
XR chest 1V portable CLINICAL HISTORY: Atypical chest pain COMPARISON STUDY: August 2016 FINDINGS: The heart is mildly enlarged. There is no failure. There is no lobar consolidation. There a re no pleural effusions. There is no pneumothorax.[ IMPRESSION: Mild cardiomegaly. No acute findings. ACT 112: Negative or not required by law. Electronically signed by: Suleiman Mcknight M.D. 03/10/2019 10:31 AM
[2019-03-10 11:09] LABS: Basophils # (auto) 0.07 K/uL (0-0.2); Eosinophils # (auto) 0.16 K/uL (0-0.5); Eosinophils % (auto) 2.2 %; Hematocrit (blood only) 43.3 % (37-47); Hemoglobin 14.2 g/dL (12.0-16.0); Immature Granulocytes # (auto) 0.01 K/uL (0.00-0.02); Immature Granulocytes % (auto) 0.1 %; Lymphocytes % (auto) 33.5 %; Mean Corpuscular Hemoglobin 30.7 pg (25-34); Mean Corpuscular Hgb Conc 32.8 g/dL (32-36); Mean Corpuscular Volume 93.5 fL (80-100); Mean Platelet Volume 9.6 fL (7.4-10.4); Monocytes # (auto) 0.71 K/uL (0.11-0.59); Monocytes % (auto) 9.9 %; Neutrophils # (auto) 3.82 K/uL (1.4-6.5); Neutrophils % (auto) 53.3 %; Platelet Count 374 K/uL (130-400); RDW Coefficient of Variation 12.7 % (11.5-14.5); RDW Standard Deviation 43.2 fL (36.4-46.3); Red Blood Count 4.63 M/uL (4.2-5.4); White Blood Count 7.17 K/uL (4.8-10.8)
[2019-03-10 11:29] LABS: Alanine Aminotransferase 36 U/L (12-78); Albumin Level 3.9 gm/dl (3.4-5.0); Aspartate Aminotransferase 24 U/L (15-37); BUN Creatinine Ratio 30.6 (10-20); Blood Urea Nitrogen 30 mg/dl (7-18); Calcium 10.2 mg/dl (8.5-10.1); Carbon Dioxide 28 mmol/L (21-32); Chloride 103 mmol/L (98-107); Creatinine Clr Calc Pharmacy 47.8 ml/min; Est GFR (African American) 66.4; Est GFR (Non-African American) 57.3; Glucose 97 mg/dl (70-99); Lipase 288 U/L (73-393); Magnesium 2.5 mg/dl (1.8-2.4); Potassium 4.6 mmol/L (3.5-5.1); Sodium 137 mmol/L (136-145)
[2019-03-10 11:39] LABS: Albumin Globulin Ratio 0.9 (0.9-2); Alkaline Phosphatase 97 U/L (45-117); Bilirubin,Total 0.3 mg/dl (0.2-1); Globulin 4.4 gm/dl (2.5-4.0); Phosphorus 3.2 mg/dl (2.5-4.9); Total Protein 8.3 gm/dl (6.4-8.2); Troponin I < 0.015 ng/ml (0-0.045)
--- NOTE | 2019-03-10 14:25 | History & Physical Report ---
Date of Service March 10, 2019 Assessment & Plan (1) Exertional chest pain: Admit to PCU on telemetry for observation. Troponin x2 with EKG. Monitor electrolytes and replenish as needed. TTE pending. Heart healthy carbohydrate controlled diet. If troponin negative consider nuclear stress test and consulting cardiology. DVT prophylaxis Lovenox 40 mg subcu 2 daily. Patient is a full code. Present on Admission?: Yes (2) GERD (gastroesophageal reflux disease): Continue omeprazole 20 mg p.o. daily Present on Admission?: Yes (3) Dyslipidemia: Fasting lipid panel pending. Continue gemfibrozil 60 mg p.o. twice daily. Present on Admission?: Yes (4) Hypertension: Stable, continue home medicine amlodipine 10 mg p.o. daily, aspirin 81 mg p.o. daily, lisinopril 40 mg p.o. daily. Present on Admission?: Yes (5) Left ventricular hypertrophy due to hypertensive disease: As discussed above. Present on Admission?: Yes (6) Impaired fasting glucose: A1c pending. Present on Admission?: Yes (7) Dehydration: BUN of 30. Gentle IV fluid hydration with normal saline at 80 cc/h. Stop fluids after BUN improves and patient euvolemic. Monitor electrolytes. Present on Admission?: Yes History of Present Illness Chief Complaint: Exertional chest pain Primary Care Provider: Manjeet Maldonado MD Patient is a 73 years old female with past medical history of hypertension, hyperlipidemia, impaired glucose control, depression who was brought to the emergency room by EMS after she experienced a chest pain this morning provoked with exertion. Patient reports that her chest pain improved after she was given aspirin by EMS. Patient had similar chest pains for several days and she said it to subside if she takes aspirin. Patient's reports chest pain being always present on exertion and not when she is resting. Patient reports having a strong family history of myocardial infarction and cardiac event. She also has a heart murmur. Patient denies fever, chills, chest pain now, shortness of breath, abdominal pain, frequency, urgency,, syncope or near syncope. Labs are reviewed: WBC 7.17, hemoglobin 14.2, hematocrit 43.3, platelets 374, sodium 137, potassium 4.6, chloride 103, carbon dioxide 28, anion gap 5, BUN 30, creatinine 0.99, GFR 57.3, calcium 10.2, glucose 97, phosphorus, magnesium 2.5, ALT 36, AST 24, troponin 0 0.015, total protein 8.3, albumin 3.9, globulin 4.4, TSH pending, BNP pending. Chest x-ray is shows mild cardiomegaly, no acute findings. Decision was made to admit patient for exertional chest pain on telemetry for observation. Allergies Allergy/AdvReac Type Severity Reaction Status Date / Time Bactrim Allergy Mild RASH Verified 09/26/16 10:52 sulfamethoxazole Allergy Mild RASH Verified 03/10/19 10:57 trimethoprim Allergy Mild RASH Verified 03/10/19 10:57 fenofibrate Allergy Unknown UNKNOWN Verified 03/10/19 10:57 REACTION atorvastatin AdvReac Unknown ELEVATED Verified 03/10/19 10:57 CPK codeine AdvReac Unknown CONSTIPATION Verified 03/10/19 10:57 & NAUSEA diphenhydramine AdvReac Unknown HYPERACTIVE Verified 03/10/19 10:57 lovastatin AdvReac Unknown MUSCLE Verified 03/10/19 10:57 ACHES niacin AdvReac Unknown NAUSEA Verified 03/10/19 10:57 rosuvastatin AdvReac Unknown ELEVATED Verified 03/10/19 10:57 CPK simvastatin AdvReac Unknown ELEVATED Verified 03/10/19 10:57 CPK Home Medications Home Medications Medication Instructions Recorded Confirmed Type amoxicillin 500 mg capsule 2,000 mg PO ONCE PRN cap 11/11/18 03/10/19 History aspirin 81 mg tablet,delayed 81 mg PO DAILY #90 tab 11/11/18 03/10/19 History release lisinopril 40 mg tablet 40 mg PO DAILY #90 tab 11/11/18 03/10/19 History loratadine 10 mg tablet 10 mg PO DAILY PRN tab 11/11/18 03/10/19 History omeprazole 20 mg capsule,delayed 20 mg PO DAILY #90 cap 11/22/18 03/10/19 Rx release celecoxib 200 mg capsule 200 mg PO DAILY #90 cap 12/16/18 03/10/19 Rx potassium citrate 15 mEq (1,620 30 meq PO TID #270 tab 01/15/19 03/10/19 History mg) tablet,extended release amlodipine 10 mg tablet 10 mg PO DAILY #90 tab 02/05/19 03/10/19 Rx clonazepam 0.5 mg tablet 0.5 mg PO HS PRN #30 tab 02/05/19 03/10/19 Rx cyclobenzaprine 10 mg tablet 10 mg PO HS PRN #30 tab 02/05/19 03/10/19 History gemfibrozil 600 mg tablet 600 mg PO BID #180 tab 02/05/19 03/10/19 Rx venlafaxine 37.5 mg PO DAILY 03/10/19 03/10/19 History Past Med/Surg History Medical History Basal cell carcinoma, arm (Inactive) Dyslipidemia (Chronic) GERD (gastroesophageal reflux disease) (Chronic) Hypertension (Chronic) Impaired fasting glucose (Chronic) Left renal artery stenosis (Chronic) Left ventricular hypertrophy due to hypertensive disease (Chronic) Nephrolithiasis (Chronic) Periodic limb movement disorder (Chronic) Postmenopausal atrophic vaginitis (Chronic) Statin intolerance (Chronic) Urge and stress incontinence (Chronic) Vitamin D deficiency (Chronic) Surgical History H/O section S/P cholecystectomy S/P hernia repair S/P knee replacement S/P tonsillectomy S/P tooth extraction Family History Father Myocardial infarction Social History Preferred Language: French Communication Ability: Effective Visual Impairment: No Limitations Hearing Ability: Normal Logistics Technician Required: No Beliefs That Will Affect Care: None marital status: Current Living Situation: Alone current occupational status: retired Other Information That Helps Us Care for You: No Feels Safe at Home: Yes Safety Concerns: Feels Safe At This Time Smoking Status: Never smoker Second Hand Exposure: No ; Hx Alcohol Use: No Hx Substance Use: No Childhood Exposure to Second-Hand Smoke: Yes Review of Systems Review of Systems: All systems reviewed & are unremarkable except as noted in HPI & below Physical Exam Constitutional: WD/WN, vitals as above well developed and + obese Eyes: PERRL, conjunctivae normal, anicteric sclerae ENMT: external ear and nose normal, oropharynx normal Neck: trachea midline, no thyromegaly Respiratory: normal respiratory effort, lungs clear to auscultation Cardiovascular: Rate/Rhythm: regular rhythm Heart Sounds: normal S1, normal S2 and + murmur Vessels: dorsalis pedis pulses present Gastrointestinal (Abdomen): normal bowel sounds, soft, nontender, no hepatosplenomegaly Musculoskeletal: no cyanosis or clubbing, extremities motor strength 5/5 Skin: no rashes, warm and dry Neurologic: patellar DTR's 2+ bilat, sensation intact Psychiatric: A+Ox3, euthymic affect Lymphatic: no cervical or axillary lymphadenopathy Results & Data Vital Signs (Past 12 Hours) Vital Signs Temp Pulse Pulse Resp BP BP Pulse Ox 03/10/19 14:00 84 18 141/78 H 97 03/10/19 12:52 66 18 128/67 97 03/10/19 12:00 66 18 136/72 98 03/10/19 11:13 62 18 138/81 97 03/10/19 09:48 36.8 C 68 18 169/77 H 97 Code Status & VTE Plan Code Status Full code VTE Prophylaxis Plan VTE Prophylaxis will be ordered: Yes PG Care Time/CCT Total # of Minutes Spent Total Time Spent with Patient: Total time spent is greater than 50% in coordination of care (as documented) at patient's floor/unit and/or counseling patient:
[2019-03-10] MEDS ORDERED: ALUMINUM/MAGNESIUM SUSP 30 ML UDC PO PRN (15:32)
[2019-03-10] MEDS ORDERED: POLYETHYLENE (MIRALAX) 17 GM PACK PO PRN (15:32)
[2019-03-10] MEDS ORDERED: ACETAMINOPHEN 325 MG TAB PO PRN (15:32)
[2019-03-10] MEDS ORDERED: NITROGLYCERIN SL 0.4 MG/TAB TAB SL PRN (15:32)
[2019-03-10] MEDS ORDERED: LORATADINE 10 MG TAB PO PRN (15:32)
[2019-03-10] MEDS ORDERED: MAGNESIUM HYDROXIDE SUSP 30 ML UDC PO PRN (15:32)
[2019-03-10] MEDS ORDERED: CYCLOBENZAPRINE HCL 10 MG TAB PO PRN (15:32)
[2019-03-10] MEDS ORDERED: ONDANSETRON INJ 2 MG/ML 2 ML VIAL IV PRN (15:32)
[2019-03-10] MEDS ORDERED: clonazePAM 0.5 MG TAB PO PRN (15:32)
--- NOTE | 2019-03-10 15:32 | Electrocardiogram Report ---
Test Reason : Blood Pressure : / mmHG Vent. Rate : 069 BPM Atrial Rate : 069 BPM P-R Int : 190 ms QRS Dur : 076 ms QT Int : 386 ms P-R-T Axes : 059 030 004 degrees QTc Int : 413 ms Normal sinus rhythm Low voltage QRS Borderline ECG When compared with ECG of 30-AUG-2016 10:36, T wave inversion now evident in Inferior leads Confirmed by Jonh Macias ([id number]) on 03/10/2019 3:32:26 PM Referred By: REFERRED SELF Confirmed By:Jonh Macias
[2019-03-10] MEDS ORDERED: AMLODIPINE BESYLATE 5 MG TAB PO SCH (16:00)
[2019-03-10] MEDS ORDERED: SODIUM CHLORIDE 0.9% 1000ML 1,000 ML IV SCH (16:00)
[2019-03-10 16:28] LABS: Magnesium 2.4 mg/dl (1.8-2.4); NT Pro B Type Natriuretic Pept 19 pg/ml (0-900); Troponin I < 0.015 ng/ml (0-0.045)
[2019-03-10] MEDS: POTASSIUM CITRATE 10 MEQ TAB PO SCH (17:35)
--- NOTE | 2019-03-10 19:01 | Emergency Department Note ---
Entered by Maci Rogers acting as a scribe for History of Present Illness General Chief complaint: Chest Pain Time Seen by Provider: 03/10/19 10:12 Source: patient History of Present Illness Onset (ago): week(s) 1 Location: chest Radiation: other (left arm) Pain Consistency: + intermittent Quality: + other (chest pain) Exacerbated By: + movement Associated symptoms: + chest pain, + shortness of breath and + other (Positive diarrhea. Negative congestion.); no cough, no fever/chills and no naus ea/vomiting Treatments prior to arrival: aspirin The patient is a 73 year old female presenting to the Emergency Department complaining of intermittent chest pain starting 1 week ago. The patient reports that she has been experiencing mild chest pain that sometimes radiates to her left arm. She explains that she experiences this pain for 15 to 20 minutes at a time and then it resolves. She states that exerting herself onsets this pain and makes her short of breath. She notes that she has never experienced these symptoms before. She adds that she felt this chest pain this morning after her walk which improved with rest. The patient reports that she currently has no chest pain. She states that she took Aspiring for her symptoms [employer]. She explains that she has been experiencing diarrhea for the past 2 days. She notes that she recently had a stress test and echocardiogram done in either September or October of 2018 due to her familys history of heart disease and CA. The patient denies shortness of breath, fevers, chills, cough and congestion. Home Medications Home Medications Medication Instructions Recorded Confirmed Type amoxicillin 500 mg capsule 2,000 mg PO ONCE PRN cap 11/11/18 03/10/19 History aspirin 81 mg tablet,delayed 81 mg PO DAILY #90 tab 11/11/18 03/10/19 History release lisinopril 40 mg tablet 40 mg PO DAILY #90 tab 11/11/18 03/10/19 History loratadine 10 mg tablet 10 mg PO DAILY PRN tab 11/11/18 03/10/19 History omeprazole 20 mg capsule,delayed 20 mg PO DAILY #90 cap 11/22/18 03/10/19 Rx release celecoxib 200 mg capsule 200 mg PO DAILY #90 cap 12/16/18 03/10/19 Rx amlodipine 10 mg tablet 10 mg PO DAILY #90 tab 02/05/19 03/10/19 Rx clonazepam 0.5 mg tablet 0.5 mg PO HS PRN #30 tab 02/05/19 03/10/19 Rx cyclobenzaprine 10 mg tablet 10 mg PO HS PRN #30 tab 02/05/19 03/10/19 History gemfibrozil 600 mg tablet 600 mg PO BID #180 tab 02/05/19 03/10/19 Rx potassium citrate 30 meq PO BID17 03/10/19 03/10/19 History venlafaxine 37.5 mg PO DAILY 03/10/19 03/10/19 History Allergies Allergy/AdvReac Type Severity Reaction Status Date / Time Bactrim Allergy Mild RASH Verified 09/26/16 10:52 sulfamethoxazole Allergy Mild RASH Verified 03/10/19 10:57 trimethoprim Allergy Mild RASH Verified 03/10/19 10:57 fenofibrate Allergy Unknown UNKNOWN Verified 03/10/19 10:57 REACTION atorvastatin AdvReac Unknown ELEVATED Verified 03/10/19 10:57 CPK codeine AdvReac Unknown CONSTIPATION Verified 03/10/19 10:57 & NAUSEA diphenhydramine AdvReac Unknown HYPERACTIVE Verified 03/10/19 10:57 lovastatin AdvReac Unknown MUSCLE Verified 03/10/19 10:57 ACHES niacin AdvReac Unknown NAUSEA Verified 03/10/19 10:57 rosuvastatin AdvReac Unknown ELEVATED Verified 03/10/19 10:57 CPK simvastatin AdvReac Unknown ELEVATED Verified 03/10/19 10:57 CPK Past Med/Surg History Medical History Basal cell carcinoma, arm (Inactive) Dyslipidemia (Chronic) GERD (gastroesophageal reflux disease) (Chronic) Hypertension (Chronic) Impaired fasting glucose (Chronic) Left renal artery stenosis (Chronic) Left ventricular hypertrophy due to hypertensive disease (Chronic) Nephrolithiasis (Chronic) Periodic limb movement disorder (Chronic) Postmenopausal atrophic vaginitis (Chronic) Statin intolerance (Chronic) Urge and stress incontinence (Chronic) Vitamin D deficiency (Chronic) Surgical History H/O section S/P cholecystectomy S/P hernia repair S/P knee replacement S/P tonsillectomy S/P tooth extraction Family History Father Myocardial infarction Social History Preferred Language: Amharic Communication Ability: Effective Visual Impairment: No Limitations Hearing Ability: Normal Toolmaker Grade Three Required: No Beliefs That Will Affect Care: None marital status: Current Living Situation: Alone current occupational status: retired Feels Safe at Home: Yes Smoking Status: Never smoker Second Hand Exposure: No ; Hx Alcohol Use: No Hx Substance Use: No Childhood Exposure to Second-Hand Smoke: Yes Review of Systems See HPI for pertinent positives & negatives. and A total of 10 systems reviewed and were otherwise negative Physical Exam Vital Signs Vital Signs - 24 hr 03/10/19 09:48 03/10/19 10:13 03/10/19 11:13 Temperature 36.8 C Temperature Source Oral Pulse Rate 68 Pulse Rate [Apical] 62 Respiratory Rate 18 18 Respiratory Effort / Characteristics Non-Labored Non-Labored Respiratory Depth Normal Normal Blood Pressure 169/77 H Blood Pressure [Right Arm] 138/81 Blood Pressure Mean 107 Blood Pressure Mean [Right Arm] 100 Blood Pressure Position Sitting Pulse Oximetry 97 97 Oxygen Delivery Method Room Air Room Air Room Air Sepsis Recent Fever Within 48 Hours No Sepsis Action Taken by Nursing No Action Required 03/10/19 12:00 03/10/19 12:52 03/10/19 14:00 Temperature Temperature Source Pulse Rate Pulse Rate [Apical] 66 66 84 Respiratory Rate 18 18 18 Respiratory Effort / Characteristics Non-Labored Respiratory Depth Normal Blood Pressure Blood Pressure [Right Arm] 136/72 128/67 141/78 H Blood Pressure Mean Blood Pressure Mean [Right Arm] 93 87 99 Blood Pressure Position Pulse Oximetry 98 97 97 Oxygen Delivery Method Room Air Room Air Room Air Sepsis Recent Fever Within 48 Hours Sepsis Action Taken by Nursing GENERAL: Awake, alert, well-appearing, in no distress HENT: Normocephalic, atraumatic. Oropharynx with dry mucous membranes and otherwise unremarkable. . EYES: Normal conjunctiva. Sclera non-icteric. NECK: Supple. No nuchal rigidity. FROM. No JVD. RESPIRATORY: CTAB. CARDIAC: Regular rate, normal rhythm. Extremities warm and well perfused. Pulses equal. ABDOMEN: Soft, non-distended. No tenderness to palpation. No rebound or guarding. No masses. RECTAL: Deferred. MUSCULOSKELETAL: Chest examination reveals no tenderness. The back is symmetrical on inspection without obvious abnormality. There is no CVA tenderness to palpation. No joint edema. LOWER EXTREMITIES: Calves are equal size bilaterally and non-tender. No edema. No discoloration. NEURO: Normal sensorium. No sensory or motor deficits noted. SKIN: No rash or jaundice noted. Course Course 1020: The patient was evaluated in room B3B, and a complete history and physical examination were performed. 1210: I reevaluated the patient at this time. 1228: I discussed the patient's case with Dr. Evans [facility] hospitalist. She will evaluate the patient for further management. Administered Medications Amlodipine Besylate (Norvasc) 10 mg PO DAILY SUSANA Stop: 04/09/19 15:59 Last Admin: 03/10/19 16:31 Dose: 10 mg Documented by: [id number] Enoxaparin Sodium (Lovenox) 40 mg SQ Q24H SUSANA Stop: 04/09/19 19:59 Last Admin: 03/10/19 19:53 Dose: 40 mg Documented by: [id number] Gemfibrozil (Lopid) 600 mg PO BID SUSANA Stop: 04/09/19 20:59 Last Admin: 03/10/19 20:52 Dose: 600 mg Documented by: [id number] Sodium Chloride (Nss 1000ml) 1,000 mls @ 80 mls/hr IV .[id number] SUSANA Stop: 03/11/19 04:29 Last Admin: 03/10/19 16:30 Dose: 80 mls/hr Documented by: [id number] Potassium Citrate (Urocit-K) 30 meq PO BID17 SUSANA Stop: 04/09/19 16:59 Last Admin: 03/10/19 17:35 Dose: 30 meq Documented by: [id number] Discontinued Medications Sodium Chloride (Nss) 500 mls @ 999 mls/hr IV .Q31M ONE Stop: 03/10/19 10:42 Last Infusion: 03/10/19 11:44 Dose: 0 mls/hr Documented by: [id number] Admin: 03/10/19 11:14 Dose: 999 mls/hr Documented by: [id number] Medical Decision Making Differential Diagnosis Differential diagnoses includes but is not limited to acute coronary syndrome, myocardial infarction, pericarditis, pulmonary embolus, aortic dissection, pneumonia, pneumothorax, musculoskeletal, shingles, esophageal. Medical Records Attestation: I reviewed the patient's medical records. Home Medications Current Medication List: was personally reviewed by me Laboratory Data Attestation: I reviewed the patient's lab results. Result diagrams: 03/10/19 10:55 03/10/19 10:55 Lab Results 03/10/19 03/10/19 Range/Units 10:55 10:55 WBC 7.17 (4.8-10.8) K/uL RBC 4.63 (4.2-5.4) M/uL Hgb 14.2 (12.0-16.0) g/dL Hct 43.3 (37-47) % MCV 93.5 (80-100) fL MCH 30.7 (25-34) pg MCHC 32.8 (32-36) g/dL RDW Std Deviation 43.2 (36.4-46.3) fL RDW Coeff of Azar 12.7 (11.5-14.5) % Plt Count 374 (130-400) K/uL MPV 9.6 (7.4-10.4) fL Immature Gran % (Auto) 0.1 % Neut % (Auto) 53.3 % Lymph % (Auto) 33.5 % [place] % (Auto) 9.9 % Eos % (Auto) 2.2 % Baso % (Auto) 1.0 % Immature Gran # (Auto) 0.01 (0.00-0.02) K/uL Neut # (Auto) 3.82 (1.4-6.5) K/uL Lymph # (Auto) 2.40 (1.2-3.4) K/uL [place] # (Auto) 0.71 H (0.11-0.59) K/uL Eos # (Auto) 0.16 (0-0.5) K/uL Baso # (Auto) 0.07 (0-0.2) K/uL Sodium 137 (136-145) mmol/L Potassium 4.6 (3.5-5.1) mmol/L Chloride 103 (98-107) mmol/L Carbon Dioxide 28 (21-32) mmol/L Anion Gap 5.0 (3-11) BUN 30 H (7-18) mg/dl Creatinine 0.99 (0.6-1.2) mg/dl Est Cr Clr Drug Dosing 47.8 ml/min Est GFR ( Amer) 66.4 Est GFR (Non-Af Amer) 57.3 BUN/Creatinine Ratio 30.6 H (10-20) Glucose 97 (70-99) mg/dl Calcium 10.2 H (8.5-10.1) mg/dl Phosphorus 3.2 (2.5-4.9) mg/dl Magnesium 2.5 H (1.8-2.4) mg/dl Total Bilirubin 0.3 (0.2-1) mg/dl AST 24 (15-37) U/L ALT 36 (12-78) U/L Alkaline Phosphatase 97 (45-117) U/L Troponin I < 0.015 (0-0.045) ng/ml Total Protein 8.3 H (6.4-8.2) gm/dl Albumin 3.9 (3.4-5.0) gm/dl Globulin 4.4 H (2.5-4.0) gm/dl Albumin/Globulin Ratio 0.9 (0.9-2) Lipase 288 (73-393) U/L Imaging Data Radiologist's Impression: Radiology results as stated below per my review and the radiologist's interpretation: XR chest 1V portable CLINICAL HISTORY: Atypical chest pain COMPARISON STUDY: August 2016 FINDINGS: The heart is mildly enlarged. There is no failure. There is no lobar consolidation. There are no pleural effusions. There is no pneumothorax.[ IMPRESSION: Mild cardiomegaly. No acute findings. ACT 112: Negative or not required by law. Electronically signed by: Suleiman Mcknight M.D. 03/10/2019 10:31 AM ECG Data Attestation: I personally reviewed and interpreted this ECG as follows: Indication: + chest pain Rate (beats per minute): 69 Rhythm: + normal sinus ECG Pollock: + Normal ECG ST segments: no ST depression and no ST elevation ECG Findings: + Other (QT-c 413.); no PACs and no PVCs Blood Pressure Blood Pressure Findings: Elevated blood pressure Blood Pressure Disposition: further management by hospitalist SHYANNE Garrett The patient is a pleasant 73-year-old woman with a past medical history of hypertension, HLD, and family history of cardiomyopathy who presents emerged department with exertional chest pain over the past week per HPI. On arrival the patient is in no acute distress, afebrile stable vital signs. EKG without overt acute ischemia. Chest x-ray negative for acute process. WBC, H/H, platelets wnl. Chemistry without acidosis. LFTs and electrolytes unremarkable. UA negative. Troponin negative/undetectable. Of note, the patient does report having an negative stress echo in September. However, she does acknowledge that her exertional pain which she is now experiencing is entirely new. Given this in the setting of her risk factors reasonable to proceed with admission for further evaluation. Patient was agreeable with this. Case was discussed with Dr. Cristina MD hospitalist, who evaluate the patient for admission. Impression & Plan Exertional chest pain, History of hypertension, History of hyperlipidemia, Left ventricular hypertrophy due to hypertensive disease Discharge Plan Visit Data *Final* Discharge Date/Time: 03/10/19 15:12 Chief Complaint: Chest Pain ED Provider: Mykel Ghotra Discharge Problem: Exertional chest pain, History of hypertension, History of hyperlipidemia, Left ventricular hypertrophy due to hypertensive disease Patient Disposition: Admitted As Inpatient Discharge Instructions Interventions: ED Discharge Assessment Last Done: 03/10/19 15:12 Discharge Problem: Left ventricular hypertrophy due to hypertensive disease Qualifiers: Heart failure presence: without heart failure Qualified Code(s): I11.9 - Hypertensive heart disease without heart failure The scribe's documentation has been prepared under my direction and personally reviewed by me in its entirety. I confirm that the note above accurately reflects all work, treatment, procedures, and medical decision making performed by me.
[2019-03-10] MEDS ORDERED: ENOXAPARIN INJ 40 MG/0.4 ML SYR SQ SCH (20:00)
[2019-03-10] MEDS: gemfibroziL 600 MG TAB PO SCH (20:52)
[2019-03-10] MEDS ORDERED: POTASSIUM CHLORIDE 10 MEQ TABCR PO SCH (21:00)
[2019-03-11 05:59] LABS: Basophils # (auto) 0.06 K/uL (0-0.2); Basophils % (auto) 0.9 %; Eosinophils # (auto) 0.23 K/uL (0-0.5); Eosinophils % (auto) 3.3 %; Hematocrit (blood only) 44.7 % (37-47); Hemoglobin 14.7 g/dL (12.0-16.0); Immature Granulocytes # (auto) 0.02 K/uL (0.00-0.02); Immature Granulocytes % (auto) 0.3 %; Lymphocytes % (auto) 38.3 %; Mean Corpuscular Hemoglobin 30.4 pg (25-34); Mean Corpuscular Hgb Conc 32.9 g/dL (32-36); Mean Corpuscular Volume 92.5 fL (80-100); Mean Platelet Volume 9.9 fL (7.4-10.4); Monocytes # (auto) 0.55 K/uL (0.11-0.59); Monocytes % (auto) 7.8 %; Neutrophils # (auto) 3.49 K/uL (1.4-6.5); Neutrophils % (auto) 49.4 %; Platelet Count 371 K/uL (130-400); RDW Coefficient of Variation 12.8 % (11.5-14.5); RDW Standard Deviation 43.1 fL (36.4-46.3); Red Blood Count 4.83 M/uL (4.2-5.4); White Blood Count 7.05 K/uL (4.8-10.8)
[2019-03-11 06:36] LABS: Albumin Level 3.7 gm/dl (3.4-5.0); BUN Creatinine Ratio 30.9 (10-20); Calcium 9.9 mg/dl (8.5-10.1); Creatinine Clr Calc Pharmacy 52.2 ml/min; Est GFR (African American) 74.6; Est GFR (Non-African American) 64.3
[2019-03-11 06:38] LABS: Albumin Globulin Ratio 0.9 (0.9-2); Bilirubin,Total 0.3 mg/dl (0.2-1); Globulin 4.3 gm/dl (2.5-4.0)
[2019-03-11 06:53] LABS: Estimated Average Glucose 137 mg/dl; Hemoglobin A1C 6.4 % (4.5-5.6)
[2019-03-11] MEDS: POTASSIUM CITRATE 10 MEQ TAB PO SCH (07:48)
[2019-03-11] MEDS: gemfibroziL 600 MG TAB PO SCH (07:50)
[2019-03-11] MEDS ORDERED: Nursing to Pharmacy Communication ONE (08:44)
[2019-03-11] MEDS ORDERED: ASPIRIN 81 MG ECTAB PO SCH (09:00)
[2019-03-11] MEDS ORDERED: PANTOprazole 40 MG TAB PO SCH (09:00)
[2019-03-11] MEDS ORDERED: lisinopriL 40 MG TAB PO SCH (09:00)
[2019-03-11] MEDS ORDERED: VENLAFAXINE HCL XR 37.5 MG CAPXR PO SCH (09:00)
[2019-03-11] MEDS ORDERED: CeleBREX 200 MG CAP PO SCH (09:00)
--- NOTE | 2019-03-11 12:59 | Discharge Summary ---
Date of Service March 11, 2019 Admission HPI Per Admitting Provider Patient is a 73 years old female with past medical history of hypertension, hyperlipidemia, impaired glucose control, depression who was brought to the emergency room by EMS after she experienced a chest pain this morning provoked with exertion. Patient reports that her chest pain improved after she was given aspirin by EMS. Patient had similar chest pains for several days and she said it to subside if she takes aspirin. Patient's reports chest pain being always present on exertion and not when she is resting. Patient reports having a strong family history of myocardial infarction and cardiac event. She also has a heart murmur. Patient denies fever, chills, chest pain now, shortness of breath, abdominal pain, frequency, urgency,, syncope or near syncope. Labs are reviewed: WBC 7.17, hemoglobin 14.2, hematocrit 43.3, platelets 374, sodium 137, potassium 4.6, chloride 103, carbon dioxide 28, anion gap 5, BUN 30, creatinine 0.99, GFR 57.3, calcium 10.2, glucose 97, phosphorus, magnesium 2.5, ALT 36, AST 24, troponin 0 0.015, total protein 8.3, albumin 3.9, globulin 4.4, TSH pending, BNP pending. Chest x-ray is shows mild cardiomegaly, no acute findings. Decision was made to admit patient for exertional chest pain on telemetry for observation. Principal Diagnosis Pt had a small amount of chest pain during her treadmill stress ECHO, but there were no EKG changes. That is the only chest pain she has had since admission, however her chest pain thus far has only been exertional. Pt denies fever, SOB, abd pain, n/v/c/d, LE pain or swelling. Pt tells me she had a stress ECHO last summer as a screening due to family hx and it was WNL. All of her chest pain has been with exertion. Last week she had two episodes with her daily brisk walking. Sunday night she had an episode when manuvering trash cans. Her episode on the AM of 03/10 was with her brisk walking. All of these resolved with rest and/or aspirin use. This is a new issue for her. No SOB, lightheadedness, dizziness, n/v with this. Discharge Exam Constitutional WD/WN, vitals as above Eyes normal visual bhandari by confrontation and + anicteric sclerae Neck normal visual inspection and trachea midline Respiratory normal respiratory effort, lungs clear to auscultation Cardiovascular Rate/Rhythm: regular rate and regular rhythm Gastrointestinal (Abdomen) Inspection/Auscultation: abdomen not distended Percussion/Palpation: abdomen soft; abdomen nontender Musculoskeletal Head/Neck/Chest: normocephalic and head atraumatic Skin no rashes, warm and dry Neurologic awake; not confused Speech / Cognition: normal speech Psychiatric A+Ox3, euthymic affect Discharge Data Allergies Allergy/AdvReac Type Severity Reaction Status Date / Time Bactrim Allergy Mild RASH Verified 09/26/16 10:52 sulfamethoxazole Allergy Mild RASH Verified 03/10/19 10:57 trimethoprim Allergy Mild RASH Verified 03/10/19 10:57 fenofibrate Allergy Unknown UNKNOWN Verified 03/10/19 10:57 REACTION atorvastatin AdvReac Unknown ELEVATED Verified 03/10/19 10:57 CPK codeine AdvReac Unknown CONSTIPATION Verified 03/10/19 10:57 & NAUSEA diphenhydramine AdvReac Unknown HYPERACTIVE Verified 03/10/19 10:57 lovastatin AdvReac Unknown MUSCLE Verified 03/10/19 10:57 ACHES niacin AdvReac Unknown NAUSEA Verified 03/10/19 10:57 rosuvastatin AdvReac Unknown ELEVATED Verified 03/10/19 10:57 CPK simvastatin AdvReac Unknown ELEVATED Verified 03/10/19 10:57 CPK Hospital Course (1) Exertional chest pain: Admit to PCU on telemetry for observation. Troponin x3 with EKG NSR Mg, phos WNL TSH, BNP WNL CXR neg for acute CBC, PRP WNL Treadmill stress ECHO neg Discussed with pt that while a neg stress test decreases the likelihood of this pain being related to cardiac status, that it does not 100% rule this out. She states agreement with this. Discussed inpt vs outpt cardiac assessment and pt is agreeable to outpt with her primary policy services representative--appt for 03/12 at 11a Advised f/u with PCP if ongoing issues. Pt may need to pursue EGD Advised return to ED if new chest pain arises or if it is worse. (2) GERD (gastroesophageal reflux disease): Continue omeprazole 20 mg p.o. daily (3) Dyslipidemia: Fasting lipid panel with HDL 47 and LDL unable to calculate due to TG 430 Continue gemfibrozil 60 mg p.o. twice daily. (4) Hypertension: Stable, continue home medicine amlodipine 10 mg p.o. daily, aspirin 81 mg p.o. daily, lisinopril 40 mg p.o. daily. (5) Left ventricular hypertrophy due to hypertensive disease: As discussed above. (6) Impaired fasting glucose: A1c 6.4 (7) Dehydration: BUN of 30. Gentle IV fluid hydration with normal saline at 80 cc/h. Stop fluids after BUN improves and patient euvolemic. Monitor electrolytes. Total Time Total Time Spent Total Time Spent (In Minutes): >30 Total Time Includes: Examination of the Patient, Discharge Planning, Medication Reconciliation, Communication With Other Providers and Other Discharge Plan Discharge Items Patient Disposition: Home - Self-Care Reason For Visit: EXERTIONAL CHEST PAIN Discharge Diagnosis: chest pain Activity: Resume your previous activity Non-emergency contact: Primary Care Provider and Clinical Support Manager Call non-emergency contact if: you have any medication questions, your symptoms worsen and your pain is concerning for you Follow-up/Referrals: Evan Maldonado MD [Primary Care Provider] - Tru Bettencourt Jr, MD, [facility] [Physician] - 03/12/19 11:00 am (A follow up appt. with Dr. Bettencourt tomorrow, Mar.12 at 11:00am.) Diet: Heart Healthy Addtl Attending Provider Instructions: You should be seen by Dr. Bettencourt or another policy services representative from the group in the next week. Case Management has set up an appt for you on 03/12 at 11:00. If this does not work for you, please call [facility] to reschedule. You should be seen by your PCP in the next 1-2 weeks. It does seem like this issue is not related to your heart, so you may require further testing. If your symptoms worsen, you should come back to the ED. Pending Studies at Discharge: No Stand-Alone Forms: My [employer], Smoking Cessation Medications and DC Order Prescriptions: Continued omeprazole 20 mg capsule,delayed release(DR/EC) 20 mg PO DAILY Qty: 90 RF: 3 celecoxib 200 mg capsule 200 mg PO DAILY Qty: 90 RF: 3 gemfibrozil 600 mg tablet 600 mg PO BID Qty: 180 RF: 3 amlodipine 10 mg tablet 10 mg PO DAILY Qty: 90 RF: 3 clonazepam [Klonopin] 0.5 mg tablet 0.5 mg PO HS PRN (Reason: sleep) Qty: 30 RF: 1 loratadine 10 mg tablet 10 mg PO DAILY PRN (Reason: allergy symptoms) RF: 0 aspirin 81 mg tablet,delayed release (DR/EC) 81 mg PO DAILY Qty: 90 RF: 0 lisinopril 40 mg tablet 40 mg PO DAILY Qty: 90 RF: 0 amoxicillin 500 mg capsule 2,000 mg PO ONCE PRN (Reason: prophylaxis) RF: 0 cyclobenzaprine 10 mg tablet 10 mg PO HS PRN (Reason: Muscle Pain) Qty: 30 RF: 0 venlafaxine 37.5 mg Capsule,Extended Release 24hr 37.5 mg PO DAILY RF: 0 potassium citrate 15 mEq tablet extended release 30 meq PO BID17 RF: 0 Discharge Orders: Discharge Order (Routine); Ordered 03/11/19 Ordered By: Raquel Queen/Other Patient Handouts: A1C Admission Data Admit Date/Time: 03/10/19 14:11 Attending Provider: Raquel Robbins Admit Provider: Talon Evans Primary Care Provider: Evan Maldonado Other Interventions: Discharge Summary Assessment (RN) Last Done: 03/11/19 13:29 DC Date/Time DO NOT enter until pt leaves facility: 03/11/19 14:17
[2019-03-11] MEDS ORDERED: AMLODIPINE BESYLATE 5 MG TAB PO SCH (21:00)
== END 2019-03-11 14:17 | disposition home or self-care (01) ==
LOC: 2S 09:58 → ED 09:58 → SUATTDRO 14:11 → 2S 15:12

== ENCOUNTER 2019-04-25 06:59 | Observation (INO) ==
--- NOTE | 2019-04-25 08:20 | History & Physical Bridge Note ---
Date of Service April 25, 2019 History & Physical Bridge Note I have examined the patient, reviewed the History & Physical and in the interval since the performance of the History & Physical I have noted the following changes of clinical significance: no changes noted
--- NOTE | 2019-04-25 08:21 | Pre Anesthesia Assessment ---
Date of Service April 25, 2019 Pre Sedation Assessment Vital Signs Temp Pulse Resp BP Pulse Ox 04/25/19 07:10 36.9 C 73 20 142/68 H 98 Cardiovascular + regular rate and + regular rhythm + murmur Respiratory normal respiratory effort, lungs clear to auscultation Pre-Sedation Airway Assessment Smoking Status: Never smoker Hx Sleep Apnea: No Short, Thick Neck: Yes Thyromental Distance: > or= 3.5 Finger Breadths Oral Cavity: + WNL Mallampati Class: II ASA: ASA3 NPO Status Date of Last Intake of Fluids: 04/24/19 Time of Last Intake of Fluids: 22:00 Date of Last Intake of Solid Food: 04/24/19 Time of Last Intake of Solid Foods: 22:00 Procedure Planning Contraindications for Sedation: none Current Medications Reviewed: Yes Notes The planned sedation has been discussed with the patient. Informed Consent was obtained. I have identified the patient, determined the appropriateness of sedation and have assessed the patient immediately prior to the procedure. All medicine(s) and interventions are by my order.
[2019-04-25] MEDS ORDERED: NiCARDipine HCL INJ 2.5 MG/ML 10 ML AMP ONE (09:01)
[2019-04-25] MEDS ORDERED: fentaNYL citrate 100 MCG/2 ML VIAL ONE ×2 (09:01→10:30)
[2019-04-25] MEDS ORDERED: HEPARIN (PORCINE) 1000 UNIT/ML 10 ML (CATH LAB USE ONLY) ONE ×3 (09:01→11:31)
[2019-04-25] MEDS ORDERED: NITROGLYCERIN/D5W 100MCG/ML 20ML SYR ONE ×2 (09:02→10:31)
[2019-04-25] MEDS ORDERED: MIDAZOLAM HCL 1 MG/ML 2ML VIAL ONE ×2 (09:02→10:30)
[2019-04-25] MEDS ORDERED: ONDANSETRON INJ 2 MG/ML 2 ML VIAL ONE (10:26)
--- NOTE | 2019-04-25 10:26 | Cardiac Catheterization ---
[facility] Data: Non Destructive Testing Engineer Cardiac Status Clinical evaluation leading to the procedure CAD Presenation: Unstable angina Anginal Classification: CCS IV Heart Failure: No Cardiogenic Shock within 24 Hours: No Cardiac Arrest within 24 Hours: No Imaging Studies Past 6 Months: No Stress Studies Past 6 Months: Yes Standard Exercise Test: Yes - Negative Stress Echocardiogram: Yes - Negative Stress Testing w/SPECT MPI: No Cardiac CTA: No Coronary Anatomy Dominant: Co-Dominant Left Ventricular Angiography EF (%): n/a Diagnostic Physicians Name: Pedro Singh MD Status: Elective Closure Device Percutaneous Entry Location: Radial Closure Device: Radial Band Recommendations: PCI without planned CABG Cardiac Cath Procedure Full Procedure Date April 25, 2019 Pre-Procedure Diagnosis Pre-Procedure Diagnosis: Angina AUC Score AUC Score: 7 Post-Procedure Diagnosis Post-Procedure Diagnosis: Severe CAD and Normal Intracardiac Pressures Procedure(s) Performed Procedure(s) Performed: Coronary Angiography and Left Heart Cath Ict Business Development Manager Pedro Singh MD Equipment Worker(s) Farhana Barrow Estimated Blood Loss Estimated Blood Loss: < 25 ml Medication(s) Medication(s): Fentanyl, Heparin, Lidocaine 1%, Nicardipine and Versed Summary of Findings Procedures: 1. Coronary angiography 2. Left heart catheterization 3. Moderate sedation Coronary angiography: 1. Left main coronary artery: LMCA is short in duration but large in caliber. No significant CAD. 2. Left anterior descending: The LAD is medium to large in caliber. Late proximal LAD 40%. Medium caliber D1 without significant CAD. The LAD gives extensive collaterals to the right PDA. 3. Circumflex: The circumflex is a large-caliber vessel. Proximal circumflex 80%. Medium caliber OM1 with proximal 30 to 40% stenosis. Large caliber OM 2. Circumflex appears to be codominant with small PDA, without significant CAD. 4. Right coronary artery: The RCA is a large caliber vessel. Proximal RCA 99%. TORITO I/II flow. Mid RCA 40%. PL branch without significant CAD noted. PDA not fully visualized, likely due to competitive flow from the left to right collaterals. Left heart catheterization: 1. Normal LVEDP; 11 mmHg. 2. No significant aortic stenosis. 3. Left ventriculography was not performed. Moderate sedation: 1. Sedation start time: 9:28 AM 2. Sedation end time: 9:52 AM Impression: 1. Severe CAD involving proximal circumflex and proximal RCA. 2. Left to right collaterals. 3. Otherwise, nonobstructive CAD involving the LAD, mid RCA, OM1. 4. No significant aortic stenosis. 5. Normal LVEDP. Plan: 1. Images reviewed with material planning analyst, Dr. Cornejo, who is planning on attempting PCI of circumflex and RCA. Hemodynamics Rest Ao:: 120/56 Final Ao: 121/49 LV: 128//11 Recommendations Recommendations: PCI without planned CABG Specimens Specimens: None Radiation Exposure (mGy) 654 mGy. Fluoro time 4 min. Contrast (mls) 100 ml Procedural Complication(s) None Disposition Non Destructive Testing Engineer Holding/Recovery I attest to the content of the Intraoperative Record and any orders documented therein. Any exceptions are noted below. [facility] Card Cath Procedure Codes Cardiac Catheterization Procedure 1: Cardiovascular Cath Procedures: 50729 Coronaries and LHC (+/-LV) Moderate Sedation Procedure 1: Sedation/Anesthesia: 73644 Mod Sedation by the same physician;Init15 Min Child Age 5 & Up Procedure 2: Sedation/Anesthesia: 90902 Mod Sedation by the same physician; Ea [id number] Minutes PG Care Time/CCT Total # of Minutes Spent Total Time Spent with Patient: Total time spent is greater than 50% in coordination of care (as documented) at patient's floor/unit and/or counseling patient:
[2019-04-25] MEDS ORDERED: ACETAMINOPHEN 325 MG TAB PO PRN ×2 (10:29→12:07)
[2019-04-25] MEDS ORDERED: NITROGLYCERIN SL 0.4 MG/TAB TAB SL PRN ×2 (10:29→12:07)
[2019-04-25] MEDS ORDERED: ONDANSETRON INJ 2 MG/ML 2 ML VIAL IV PRN ×2 (10:29→12:07)
--- NOTE | 2019-04-25 10:31 | Post Anesthesia Assessment ---
Date of Service April 25, 2019 Post Sedation Assessment Vital Signs Temp Pulse Resp BP Pulse Ox 04/25/19 10:15 79 16 120/58 L 97 04/25/19 10:00 77 16 95/54 L 97 04/25/19 07:10 36.9 C 73 20 142/68 H 98 Recovery Score Activity: Moves 4 extremities Respiration: Deep Breath/Cough Circulation: +/-20% PreAnes Value Consciousness: Fully Awake Oxygen Saturation: > 92% On Room Air Post Anesthesia Score: 10 Discharge Sedation Level of Care: Fast Track Phase II Post Sedation Plan On clinical assessment, the patient appears to have tolerated the sedation without complications. Patient is recovering as anticipated. Patient will continue to be monitored by nursing and may be discharged when sedation discharge criteria are met per below protocol. Upon Completions of procedure up to 15 minutes continue every 5 minute vital signs and the P.A.R. score; then discharge to a Phase I or Fast Track to Phase II per the following guidelines: * Discharge Patient to appropriate Phase II area if PAR is 8 or greater or return to pre- procedure baseline. The post - procedure orders will be as directed. * If PAR score is less than 8 or not return to pre-procedure baseline then fabiola holm will follow Phase I monitoring till PAR is reached for Phase II. The Phase I may be done in procedure room or may call to secure a Phase I area. * If naloxone or flumazenil are used for reversal, hold in Phase I for continued monitoring from when last reversal dose was given for a minimum of 60 minutes or longer pending the nurse and/or physician discretion of patient condition before discharge to Phase II. Please call the Sedation Physician to re-evaluate and complete post-note for discharge to Phase II area. Do NOT discharge from procedure sedation or Phase 1 until post- sedation evaluation note is complete by procedure /sedation MD Sedation Discharge Instructions to be given to the patient at discharge to home.
[2019-04-25] MEDS ORDERED: ADENOSINE IV SOLN 3 MG/ML 20 ML VIAL IV ONE (10:51)
[2019-04-25] MEDS ORDERED: CLOPIDOGREL BISULFATE 300 MG TAB ONE (11:59)
--- NOTE | 2019-04-25 12:05 | Cardiac Catheterization ---
[facility] Data: Manager Retail Cardiac Status Clinical evaluation leading to the procedure CAD Presenation: Unstable angina Anginal Classification: CCS IV Heart Failure: No Cardiogenic Shock within 24 Hours: No Cardiac Arrest within 24 Hours: No Imaging Studies Past 6 Months: Yes Stress Studies Past 6 Months: Yes Stress Echocardiogram: Yes - Negative Diagnostic Physicians Name: Manjeet Cornejo MD Status: Elective Closure Device Percutaneous Entry Location: Radial Closure Device: Radial Band Recommendations: PCI without planned CABG PCI Indication: Unstable Angina Lesion Segment Name: mid RC Culprit Artery: Yes Stenosis Prior to Rx (%): 99 Chronic Total Occlusion: No IVUS: No FFR: No Pre-Procedure TORITO Flow: 1 Previously Treated Lesion: No Lesion Complexity: Non-High/Non-C Lesion Length (mm): 12 Thrombus Present: Yes Bifurcation Lesion: No Guidewire Across Lesion: Stenosis Post-Procedure (%): 0 Post-Procedure TORITO Flow: 3 Devices(s) Deployed: Yes Yes Lesion #2 Segment Name: proximal circumflex Culprit Artery: No Stenosis Prior to Rx (%): 80 Chronic Total Occlusion: No IVUS: No FFR: No Pre-Procedure TORITO Flow: 3 Previously Treated Lesion: No Lesion Complexity: Non-High/Non-C Lesion Length (mm): 12 Thrombus Present: No Bifurcation Lesion: No Guidewire Across Lesion: Yes Stenosis Post-Procedure (%): 0 Post-Procedure TORITO Flow: 3 Devices(s) Deployed: Yes Intraprocedure Events Significant Disection: No Perforation: No Cardiac Cath Procedure Full Procedure Date April 25, 2019 Pre-Procedure Diagnosis Pre-Procedure Diagnosis: Angina AUC Score AUC Score: 7 Post-Procedure Diagnosis Post-Procedure Diagnosis: Severe CAD and Normal Intracardiac Pressures Procedure(s) Performed Procedure(s) Performed: Coronary Angiography and Left Heart Cath Dietary Cook Manjeet Cornejo MD Internet Sales Director(s) Farhana Barrow Estimated Blood Loss Estimated Blood Loss: < 25 ml Medication(s) Medication(s): Fentanyl, Heparin, Lidocaine 1%, Nicardipine and Versed Summary of Findings Indication: Accelerating angina Access: 6 Fr left radial artery Catheters: JR4 guide, EBU 3.5 guide Findings: For full details of patient's coronary angiography please cath report dictated by Dr. Singh. Briefly, patient found to have severe multi-vessel disease including a 99 % stenosis involving the mid RCA and 80% stenosis involving proximal circumflex. She also had a moderate proximal LAD stenosis. Decision to proceed with PCI of RCA, circumflex. FFR of LAD. -- PCI -- Antithrombotic therapy: Heparin, clopidogrel Procedure: RCA cannulated with JR4 guide Welder Fabricator 50 wire passed across lesion into distal vessel Mid RCA lesion predilated with 2.5 compliant balloon Dilated lesion stented with 2.75 x 22 mm Ab drug-eluting stent Stent post-dilated with 3.0 and 3.5 noncompliant balloons IC vasodilators administered for spasm Post procedure TORITO 3 flow, stent well expanded with minimal residual stenosis and no apparent cardiac complications. Left main cannulated with EBU 3.5 guide BMW wire placed into distal LAD ACIST FFR catheter placed into mid LAD FFR 0.83 FFR catheter removed and BMW wire placed into distal circumflex Proximal circumflex dilated with 2.5 balloon Dilated circumflex lesion stented with 3.5 x 12 mm Ab drug-eluting stent Stent post dilated with 3.5 NC IC vasodilators administered for spasm Post procedure TORITO 3 flow, stent well expanded with minimal residual stenosis and no apparent cardiac complications. Arterial Closure: TR band Summary: 1. Successful PCI of mid RCA with single drug-eluting stent (2.75 x 22 [place] ANISH, post-dilated with 3.5 NC). 2. Successful PCI of proximal circumflex with single drug-eluting stent (3.5 x 12 [place] ANISH). 3. Moderate nonobstructive proximal LAD disease (FFR 0.83). Recommendations: To PCU for continued monitoring Loaded with clopidogrel 600 mg in chemistry lab instructor Continue dual-antiplatelet therapy for at least 1 year Continue statin, and ASCVD risk factor modification Consult cardiac Rehab Hemodynamics Rest Ao:: 109/45/70 Final Ao: 109 LV: -- Recommendations Recommendations: PCI without planned CABG Specimens Specimens: None Radiation Exposure (mGy) 3687 Contrast (mls) 185 Fluids (cc crystalloids) Fluids (cc crystalloids): 150 Drains Drains: None Anesthesia Moderate Procedural Complication(s) None Disposition PCU I attest to the content of the Intraoperative Record and any orders documented therein. Any exceptions are noted below. [facility] Card Cath Procedure Codes Moderate Sedation Procedure 1: Sedation/Anesthesia: 28910 Mod Sedation by a different physician ;Init15 Min Child Age 5&Up Procedure 2: Sedation/Anesthesia: 17663 Mod Sedation by a different physician;Ea Additional 15 Minutes Stenting Procedure 1: Cardiovascular Stent Procedures: 00778 Perc transcatheter placement of intracoronary stent(s), with ang Procedure 2: Cardiovascular Stent Procedures: 43699 Ea addl branch of a major coronary artery PG Care Time/CCT Total # of Minutes Spent Total Time Spent with Patient: Total time spent is greater than 50% in coordination of care (as documented) at patient's floor/unit and/or counseling patient:
[2019-04-25] MEDS ORDERED: clonazePAM 0.5 MG TAB PO PRN (12:11)
[2019-04-25] MEDS ORDERED: VENLAFAXINE HCL XR 37.5 MG CAPXR PO PRN (12:11)
[2019-04-25] MEDS ORDERED: CYCLOBENZAPRINE HCL 10 MG TAB PO PRN (12:11)
[2019-04-25] MEDS ORDERED: LORATADINE 10 MG TAB PO PRN (12:11)
[2019-04-25] MEDS ORDERED: SODIUM CHLORIDE 0.9% 1000ML 1,000 ML IV SCH (13:00)
[2019-04-25] MEDS ORDERED: Nursing to Pharmacy Communication ONE (17:43)
[2019-04-25] MEDS: gemfibroziL 600 MG TAB PO SCH (20:23)
[2019-04-25] MEDS ORDERED: PANTOprazole 40 MG TAB PO SCH (21:00)
[2019-04-25] MEDS ORDERED: AMLODIPINE BESYLATE 5 MG TAB PO SCH (21:00)
--- NOTE | 2019-04-25 22:20 | Electrocardiogram Report ---
Test Reason : Blood Pressure : / mmHG Vent. Rate : 061 BPM Atrial Rate : 061 BPM P-R Int : 222 ms QRS Dur : 078 ms QT Int : 418 ms P-R-T Axes : 058 014 -03 degrees QTc Int : 420 ms Sinus rhythm with sinus arrhythmia with 1st degree A-V block Otherwise normal ECG When compared with ECG of 10-MAR-2019 15:55, No significant change was found Confirmed by Pedro Singh ([id number]) on 04/25/2019 10:20:51 PM Referred By: Pedro Singh Confirmed By:Pedro Singh
[2019-04-26 06:10] LABS: Basophils # (auto) 0.03 K/uL (0-0.2); Basophils % (auto) 0.4 %; Eosinophils # (auto) 0.28 K/uL (0-0.5); Eosinophils % (auto) 3.3 %; Hematocrit (blood only) 36.8 % (37-47); Hemoglobin 12.5 g/dL (12.0-16.0); Immature Granulocytes # (auto) 0.02 K/uL (0.00-0.02); Immature Granulocytes % (auto) 0.2 %; Lymphocytes # (auto) 2.31 K/uL (1.2-3.4); Lymphocytes % (auto) 27.5 %; Mean Corpuscular Hemoglobin 30.9 pg (25-34); Mean Corpuscular Volume 90.9 fL (80-100); Mean Platelet Volume 9.7 fL (7.4-10.4); Monocytes # (auto) 0.74 K/uL (0.11-0.59); Monocytes % (auto) 8.8 %; Neutrophils # (auto) 5.01 K/uL (1.4-6.5); Neutrophils % (auto) 59.8 %; Platelet Count 334 K/uL (130-400); RDW Standard Deviation 42.6 fL (36.4-46.3); Red Blood Count 4.05 M/uL (4.2-5.4); White Blood Count 8.39 K/uL (4.8-10.8)
[2019-04-26 06:46] LABS: BUN Creatinine Ratio 25.5 (10-20); Calcium 9.2 mg/dl (8.5-10.1); Creatinine Clr Calc Pharmacy 44.4 ml/min; Est GFR (African American) 59.1
[2019-04-26] MEDS: gemfibroziL 600 MG TAB PO SCH (08:16)
[2019-04-26] MEDS ORDERED: lisinopriL 40 MG TAB PO SCH (09:00)
[2019-04-26] MEDS ORDERED: AMLODIPINE BESYLATE 5 MG TAB PO SCH (09:00)
[2019-04-26] MEDS ORDERED: METOPROLOL SUCC 50MG EXT REL TAB PO SCH (09:00)
[2019-04-26] MEDS ORDERED: ASPIRIN 81 MG ECTAB PO SCH (09:00)
[2019-04-26] MEDS ORDERED: CLOPIDOGREL BISULFATE 75 MG TAB PO SCH (09:00)
[2019-04-26] MEDS ORDERED: ISOSORBIDE MONO EXTENDED REL 30 MG TABCR PO SCH (09:00)
[2019-04-26] MEDS ORDERED: CeleBREX 200 MG CAP PO SCH (09:00)
[2019-04-26] MEDS ORDERED: ENOXAPARIN INJ 40 MG/0.4 ML SYR SQ SCH (12:15)
--- NOTE | 2019-04-27 16:18 | Discharge Summary ---
Date of Service April 27, 2019 Admission HPI Per Admitting Provider Ms. Canchola is a 73-year-old woman with accelerating chest pain concerning for angina. She has hypertension, dyslipidemia, peripheral arterial disease and a significant family history of premature coronary artery disease. Prior stress test unremarkable. Referred for diagnostic coronary angiography by Dr. Singh. Specialty Data Cardiology Cardiac catheterization: Right radial artery. Lateproximal 40 to 50%, proximal circumflex 80%, proximal RCA 99% with TORITO I/II flow and [id number] collaterals to PDA. PCI: Left radial artery. PCI of mid RCA with 2.75 x 22 Ab, postdilated with 3.5 NC. PCI proximal circumflex with 3.5 x 12 mm [place]. FFR of proximal LAD negative (0.83). Discharge Data Consultations 04/25/19 12:11 Consult Cardiac Rehabilitation Routine Procedures Performed Operation Date: 04/25/19 08:00 Actual Procedures p Cath, Left with Cors and Vent - Pedro Singh MD s Cineradiography w/Routine Exam - Clarence Perez DO s Drug Eluting Stent SGl Vessel - Evan Cornejo MD s Drug Eluting Stent each ADD Vessel - Evan Cornejo MD s Fraction Flow [place] SGL Ves - Evan Cornejo MD Operation Date: 04/25/19 10:20 Actual Procedures p Drug Eluting Stent each ADDTL Vessel - Evan Cornejo MD Hospital Course (1) CAD (coronary artery disease): Cardiac catheterization revealed multivessel coronary artery disease including a 99% mid RCA lesion with [id number] collaterals. Also an 80% proximal circumflex lesion. FFR of moderate lateproximal LAD lesion was nonsignificant. Underwent multivessel PCI with stent placed to mid LAD and proximal circumflex. Procedure uncomplicated. Patient admitted to telemetry post procedure for further observation. No recurrent chest pain. Telemetry unremarkable. Post procedure labs stable. No access site complications. Patient feeling well and discharged home on hospital day 2. Discharged on DAPT with aspirin, clopidogrel. Follow-up with Dr. Bettencourt in 2 to 3 weeks. Discharge Instructions Home Medications amoxicillin 500 mg capsule 2,000 mg PO ONCE PRN cap 11/11/18 [History Confirmed 04/24/19] aspirin 81 mg tablet,delayed release 81 mg PO DAILY #90 tab 11/11/18 [History Confirmed 04/24/19] lisinopril 40 mg tablet 40 mg PO DAILY #90 tab 11/11/18 [History Confirmed 04/24/19] loratadine 10 mg tablet 10 mg PO DAILY PRN tab 11/11/18 [History Confirmed 04/24/19] celecoxib 200 mg capsule 200 mg PO DAILY #90 cap 12/16/18 [Rx Confirmed 04/24/19] amlodipine 10 mg tablet 10 mg PO DAILY #90 tab 02/05/19 [Rx Confirmed 04/24/19] clonazepam 0.5 mg tablet 0.5 mg PO HS PRN #30 tab 02/05/19 [Rx Confirmed 04/24/19] cyclobenzaprine 10 mg tablet 10 mg PO HS PRN #30 tab 02/05/19 [History Confirmed 04/24/19] gemfibrozil 600 mg tablet 600 mg PO BID #180 tab 02/05/19 [Rx Confirmed 04/24/19] nitroglycerin 0.4 mg sublingual tablet 0.4 mg SL Q5M PRN #30 tab 03/12/19 [Rx Confirmed 04/24/19] metoprolol succinate 50 mg capsule sprinkle, ext. release 24 hr 50 mg PO DAILY #90 ea 03/21/19 [Rx Confirmed 04/24/19] potassium citrate 15 mEq (1,620 mg) tablet,extended release 30 meq PO BID tab 03/21/19 [History Confirmed 04/24/19] venlafaxine 37.5 mg capsule,extended release 24 hr 37.5 mg PO DAILY PRN 04/21/19 [History Confirmed 04/24/19] isosorbide mononitrate 30 mg tablet,extended release 24 hr 30 mg PO DAILY #90 tab 04/22/19 [Rx Confirmed 04/24/19] clopidogrel 75 mg PO QAM #30 tab 04/26/19 [Rx] pantoprazole 40 mg PO HS #30 tab 04/26/19 [Rx] Coding Level of Care Code 61058 OBS Care - Discharge Diagnoses CAD (coronary artery disease) I25.10
== END 2019-04-26 11:39 | disposition home or self-care (01) ==
LOC: 2S 06:59 → CC 06:59